=== PATIENT | female | born 1950 | race Asian ===

== ENCOUNTER 2023-04-14 17:10 | Inpatient (IN) | payer OTHER, SELFPAY ==
[2023-04-14 14:05] VITALS: BP 119/62
--- NOTE | 2023-04-14 14:25 | ED.GENMED ---
History of Present Illness
General
Chief Complaint: Failure to Thrive
Time Seen by Provider: 04/14/23 14:24
Travel History
Have you had any contact with someone who has COVID-19?: Unable to Answer
Do you have any symptoms of coronavirus? Fever > 100 degrees, chills, cough, shortness of breath, sore throat, loss of taste or smell, muscle aches, or headache?: Unable to Answer
History of Present Illness
History of Present Illness:
HPI: Pt is a nonhistorian. I called [facility], , at 1435 and spoke to ANA PAULA Clements: 'She had HR 145 w/ labored breathing, no change in mental status (normally awake and oriented x 1) but has been appearing weaker over the past week.
EXAM:
GENERAL: Appears in no distress, but is chronically ill in appearance, poor eye contact and does not participate with examination, she lays in the right lateral decubitus position
HEENT: Dry oral mucosa
CARDIOVASCULAR: Tachycardic rate with irregular rhythm
PULMONARY: No respiratory distress, breathing is nonlabored, equal and clear breath sounds
ABDOMEN: Soft and nontender with no peritoneal signs
NEUROLOGIC: The patient has evidence of dementia, strength is equal in all extremities, she does not participate with examination and does not follow commands, she is nonverbal
EXTREMITIES: Moves all extremities weakly but equally, no tenderness, no edema
PYSCHIATRIC: Currently nonverbal does not participate examination
SKIN: There is a healing wound to the left flank region
ED COURSE:
2:30 PM: I initially evaluated patient
NUMBER AND COMPLEXITY OF PROBLEMS ADDRESSED AT THE ENCOUNTER
� Chronic conditions affecting care: A-fib status post Watchman, high blood pressure, hyperlipidemia, history of alcohol abuse, anxiety/depression
� Acute Exacerbation and/or Progression of Chronic Illness: This is an acute problem
� Differential Diagnosis includes: UTI/sepsis, bacteremia, pneumonia
AMOUNT AND/OR COMPLEXITY OF DATA TO BE REVIEWED AND ANALYZED
� I performed an independent evaluation of and my interpretation is:
EKG: A-fib 110, anterolateral T wave inversion unchanged from 03/31/2023
CT:
X-rays: Chest x-ray shows no clear sign of pneumonia but does show chronic disease
Laboratory Studies: White count slightly high at 11.7, hemoglobin slightly lower at 8.3 in comparison to prior, creatinine is 3.2 which is acutely worsened prior
Other:
� Review of other/old records: I reviewed the discharge summary from January 2023. At that time the patient was felt to have a toxic metabolic encephalopathy related to left frontal subdural hygroma there is also urine culture
that grew Proteus Mirabella
� Clinical information was obtained by an independent historian: ANA PAULA at [facility] as above
� Prescriptions/Medications Considered but not given:
� Further testing considered but not performed:
RISK OF COMPLICATIONS AND/OR MORBIDITY OR MORTALITY OF PATIENT MANAGEMENT
� Social determinants of health affecting care: Comes in from [place]
� Discussion with other providers: Hospitalist for admission at 4:19 PM
� Escalation of care including admission/observation vs risk of discharge considered: The patient's bicarb is very low. She also has evidence of CARMELINA. I am concerned for sepsis as well as severe dehydration (sodium 152). She
was given IV broad-spectrum antibiotics as well as IV fluids aggressively. RN attempted bladder catheterization however given the reported altered anatomy she was unable to perform a straight cath.
Past History
Past History
ED Past Medical History: Arrthythmia (AFib), HTN, Hypercholesterolemia and Other (UTI,)
ED Past Surgical History: Appendectomy, Cardiac (Watchman Procedure), Orthopedic (Knee replacement) and Other (Cataract extraction OU)
Social History
Tobacco: Non-smoker
Alcohol: Daily (Vodka 2 glasses)
Drug: None
Personal:
Living: with family
Family History
Family History: Other (parents bombed in [facility]); Negative Unable to obtain (reviewed and non-contributory)
Phy Exam
Physical Exam
Physical Exam:
See HPI
Course
Orders/Labs/Results
Orders:
Orders
04/14/23 14:04
Electrocardiogram (*1) Urgent
Reason for Study: Fatigue / Weakness
Other Reason for Exam: failure to thrive
EKG- Treatment ONCE
04/14/23 14:21
CMP [Comprehensive Metabolic Panel] Urgent
Complete Blood Count/With Diff Urgent
04/14/23 14:26
CR Chest Portable - 1 View Urgent
Comment:
Reason For Exam: abnormal breathing pattern low grade fever
Reason Study Needs to be Portable: Unable to Transport
04/14/23 14:32
0.9% Sodium Chloride 500 ml [Nss] 500 ml IV BOLUS
04/14/23 14:33
Urinalysis Reflex To Culture Urgent
Date Specimen was Collected: 04/14/23
Time Specimen was Collected: 15:46
04/14/23 14:39
Acetaminophen [Tylenol/Feverall] 650 mg RECTAL NOW STA
04/14/23 Dinner
Regular
At Your Request: Non-Participating
04/14/23 15:18
0.9% Sodium Chloride 1000 ml [Nss] 1,000 ml IV BOLUS
04/14/23 15:41
Blood Culture Q30M
JUSTIN Source: Blood/Venous
Specimen Description:
04/14/23 15:42
COVID-19 Antigen Urgent
Source: Nasal Swab
Lactic Acid Q4H
Comment: CANCEL 2nd LACTIC ACID IF 1st LACTIC ACID IS LESS THAN 2
Blood Culture Q30M
JUSTIN Source: Blood/Venous
Specimen Description:
Influenza A+B Rapid Molecular Urgent
JUSTIN Source: Nasal Swab
Specimen Description:
04/14/23 16:09
Cefepime HCl [Maxipime] 1,000 mg IV NOW STA
04/14/23 16:43
Admit/Transfer Patient As Directed
Co-Sign Provider:
Level of Care: Inpatient admission
Assign to:: Telemetry
Physician / Group: solange
Diagnosis: sepsis presumably uti
Reason for Telemetry: Arrhythmia
Date to Stop Telemetry: 04/17/23
Time to Stop Telemetry: 11:00
Reason for Hospitalization: sepsis presumably uti
Expected length of stay greater than two midnights?: Yes
ELOS- Estimated Length of Stay in days: 2
I certify the patient meets the requirements for IP care: Yes
04/14/23 16:44
Code Status As Directed
Resuscitation Status: Full Code
04/14/23 16:47
Sodium Bicarbonate 50 meq IV NOW STA
04/14/23 16:52
Vancomycin 1 Gram/200 ml [Vancocin] 1 gram in 200 ml IV NOW
04/14/23 17:00
Sterile Water For Inj [Sterile Water For Injection 1000 ml] 1,000 ml Sodium Bicarbonate 150 meq IV 70 mls/hr
04/14/23 18:20
Bisacodyl [Dulcolax] 10 mg RECTAL DAILYPRN PRN
Magnesium Hydroxide [Milk of Magnesia] 30 ml PO [id number] PRN
VANCOMYCIN Pharmacy to Dose [VANCOCIN Pharmacy to Dose] 1 each Pharmacy To Prepare [Call Pharmacy To Prepare] 0 ml IV PER PROTOCOL
04/14/23 18:20
Activity As Directed
Activity Level: As Tolerated
Bladder Scan As Directed
Follow Bladder Retention/Intermittent Cath Algorithm?: Yes
PRN if no void in __ hours: 6
Frequency: Per Retention Algorithm
If Bladder Scan Result >: 400
then:: Straight cath
I/O [Intake/ Output] As Directed
Frequency: q12h
Straight Cath As Directed
Frequency: Per Retention Algorithm
Additional Instructions: straight cath as needed per acute urinary retention algorithm for 24 hrs
Additional Instructions: for bladder scan greater than 400 mL
Vital Signs As Directed
Frequency: Per unit guidelines
DX Deep Vein Thrombosis Video Routine
04/14/23 18:53
Carboxymethylcellulose [Refresh Celluvisc Gel] 1 drops BOTH EYES Q4HPRN PRN
04/14/23 20:00
Heparin 5,000 units SC Q12
04/14/23 22:00
Aspirin Low Dose EC [Aspir Low (Enteric Coated)] 81 mg PO HS
Atorvastatin [Lipitor] 40 mg PO HS
Diltiazem [Cardizem] 30 mg PO Q8H
Latanoprost [Xalatan Ophthalmic Solution] 0 drop BOTH EYES HS
Sildenafil Citrate [Revatio] 30 mg PO TID
Timolol Maleate 0.5% [Timoptic 0.5% Ophthalmic Solution] 0 drop LEFT EYE HS
04/15/23 06:00
Complete Blood Count/With Diff IN AM
Comprehensive Metabolic Panel IN AM
04/15/23 08:00
Duloxetine Delayed Release [Cymbalta Delayed Release] 60 mg PO DAILY
Magnesium l-Lactate [Mag-Tab Sr] 84 mg PO DAILY
Pantoprazole [Protonix] 40 mg PO DAILY
Thiamine HCl [Vitamin B1] 100 mg PO DAILY
04/17/23 11:00
DC Protocol for Telemetry ONCE
Abnormal Lab Results
04/14/23 04/14/23
14:21 15:42
WBC 11.7 H 10^3/uL
(4.8-10.8)
RBC 2.74 L 10^6/uL
(4.20-5.40)
Hgb 8.3 L g/dL
(12.0-16.0)
Hct 25.1 L %
(37.0-47.0)
RDW 20.3 H %
(11.5-14.5)
Plt Count 113 L 10^3/uL
(130-400)
Absolute Neuts (auto) 6.8 H 10^3/uL
(1.4-6.5)
Absolute Lymphs (auto) 4.0 H 10^3/uL
(1.2-3.4)
Absolute Monos (auto) 0.7 H 10^3/uL
(0.1-0.6)
Sodium 152 H mmol/L
(135-145)
Chloride 132 H mmol/L
(98-107)
Carbon Dioxide 8 L* mmol/L
(22-30)
BUN 41 H mg/dl
(7-17)
Creatinine 3.2 H mg/dL
(0.6-1.0)
Lactic Acid 2.2 H mmol/L
(0.7-2.0)
Total Bilirubin 2.9 H mg/dl
(0.2-1.3)
AST 37 H U/L
(14-36)
Total Protein 6.2 L g/dl
(6.3-8.2)
Albumin 2.5 L g/dl
(3.5-5.0)
04/14/23 14:21
04/14/23 14:21
Vital Signs
Initial and Last Documented VS:
Initial Vital Signs
Temp Pulse Resp BP Pulse Ox
100.3 F 129 16 119/62 100
04/14/23 14:05 04/14/23 14:05 04/14/23 14:05 04/14/23 14:05 04/14/23 14:05
Last Documented Vital Signs
Temp Pulse Resp BP Pulse Ox
100.3 F 79 21 95/68 100
04/14/23 14:05 04/14/23 17:30 04/14/23 17:30 04/14/23 17:00 04/14/23 17:34
*Critical Care Note
Total Time (30-74mins, 75-104mins- exclusive of procedures): Not Applicable
ED Attending Note
-
Portions of this chart may have been created with voice recognition software.� Occasional wrong word or��sound alike� substitutions may have occurred due to the inherent limitations of voice recognition software.
Discharge Plan
Interventions
Interventions:
*Risk Screen - Suicide Last Done: 04/14/23 14:05
*General Assessment Last Done: 04/14/23 14:05
*Neglect/Abuse Screening Last Done: 04/14/23 14:05
ED- Fall Risk Assessment Last Done: 04/14/23 14:05
*ED COVID-19 Vaccine History Last Done: 04/14/23 14:05
*Nursing Disposition Last Done: 04/14/23 18:19
[2023-04-14 14:34] LABS: % Basophils 0.4 % (0-2); % Eosinophils 1.4 % (0-6); % Immature Granulocytes 0.3 % (0-0.5); % Monocytes 5.7 % (1.7-9.3); % Neutrophils 58.2 % (42.2-75.2); Absolute Basophils 0.1 10^3/uL (0-0.2); Absolute Eosinophils 0.2 10^3/uL (0-0.7); Absolute Monocytes 0.7 10^3/uL (0.1-0.6); Absolute Neutrophils 6.8 10^3/uL (1.4-6.5); Hematocrit 25.1 % (37.0-47.0); Hemoglobin 8.3 g/dL (12.0-16.0); Mean Corp Hgb Conc. 33.1 g/dL (33.0-37.0); Mean Corpuscular Hgb 30.3 pg (27.0-31.0); Mean Corpuscular Volume 91.6 fL (81.0-99.0); Mean Platelet Volume 10.1 fL (7.4-10.4); Nucleated Red Blood Cells % 0 %; Platelet Count 113 10^3/uL (130-400); Red Blood Cell Count 2.74 10^6/uL (4.20-5.40); Red Cell Dist. Width 20.3 % (11.5-14.5); White Blood Cell Count 11.7 10^3/uL (4.8-10.8)
[2023-04-14 15:00] VITALS: BP 91/71
[2023-04-14 15:14] LABS: ALT (SGPT) 16 U/L (0-35); AST (SGOT) 37 U/L (14-36); Albumin 2.5 g/dl (3.5-5.0); Alkaline Phosphatase 120 U/L (38-126); Blood Urea Nitrogen 41 mg/dl (7-17); Calcium 8.8 mg/dl (8.4-10.2); Carbon Dioxide 8 mmol/L (22-30); Chloride 132 mmol/L (98-107); Glucose 77 mg/dl (70-99); Potassium 4.2 mmol/L (3.5-5.1); Sodium 152 mmol/L (135-145); Total Bilirubin 2.9 mg/dl (0.2-1.3); Total Protein 6.2 g/dl (6.3-8.2); eGFR 14.64
[2023-04-14 16:00] VITALS: BP 101/79
[2023-04-14 16:06] LABS: Lactic Acid 2.2 mmol/L (0.7-2.0)
[2023-04-14 16:19] LABS: COVID-19 Antigen Negative (Negative)
--- NOTE | 2023-04-14 16:51 | HPS.HSE ---
Addendum entered and electronically signed by Aliya Hopson MD 04/14/23 16:56:
Held remeron and oxybutynin.
Original Note:
Family Physician
-
Family Physician: Jerry Johnson
Chief Complaint
-
altered mental status
History of Present Illness
72-year-old female with past medical history of Proteus mirabilis UTI, intracranial hygroma, anemia of chronic disease, chronic thrombocytopenia, permanent atrial fibrillation status post Watchman, hypertension, chronic cyanosis of fingertips,
hyperlipidemia, MRSA infection, depression, scleroderma, GERD, glaucoma, presenting from [facility] with decreased oral intake for the past few days. History is obtained from patient's at bedside. She was noticed to be tachycardic and
confused today. No cough noted. No vomiting or diarrhea or urinary symptoms known as per .
Medical History
Past Medical History
Past Medical History: Reports Other ( Proteus mirabilis UTI, intracranial hygroma, anemia of chronic disease, chronic thrombocytopenia, permanent atrial fibrillation status post Watchman, hypertension, chronic cyanosis of fingertips, hyperlipidemia,
MRSA infection, depression, scleroderma, GERD, glaucoma)
Past Surgical History: Reports None
Social History
Tobacco: Non-smoker
Alcohol: None
Drug: None
Family History
Family History: Not pertinent
Allergies / Home Medications
Allergies reflects when Allergies were last updated in [facility].
Home Medications with original date entered in [facility]
Allergy/Medication List:
Allergies
Allergy/AdvReac Type Severity Reaction Status Date / Time
hydromorphone [From Dilaudid] Allergy convusuion Verified 02/11/23 17:38
oxycodone Allergy confusion Verified 02/11/23 17:38
Penicillins Allergy Rash, Verified 02/10/23 11:11
hives;
tolerates
cephalosporins
Home Medications
aspirin 81 mg tablet,delayed release 81 mg PO HS Blood clot prevention/tx 09/26/18
latanoprost 0.005 % eye drops 1 drp BOTH EYES HS Eye condition 09/26/18
atorvastatin 40 mg tablet 40 mg PO HS High cholesterol 05/31/20
pantoprazole 40 mg tablet,delayed release 40 mg PO DAILY 06/06/20
timolol maleate 0.5 % eye drops 1 drp LEFT EYE HS Eye condition 10/23/20
duloxetine 60 mg capsule,delayed release 60 mg PO DAILY Pain 06/01/22
sildenafil (pulm.hypertension) 20 mg tablet 30 mg PO TID Lung/breathing issues 06/01/22
potassium chloride 10 mEq tablet,extended release 10 meq PO DAILY Electrolyte Repletion 09/01/22
thiamine HCl (vitamin B1) 100 mg tablet (Vitamin B-1) 100 mg PO DAILY Supplement 02/10/23
acetaminophen 325 mg tablet 650 mg PO Q4HPRN PRN mild pain/fever 03/31/23
bisacodyl 10 mg rectal suppository (Dulcolax (bisacodyl)) 10 mg MN DAILY PRN constipation 03/31/23
carboxymethylcellulose sodium 1 % eye drops 1 drp BOTH EYES Q4H PRN dry eyes 03/31/23
diltiazem HCl 30 mg tablet 30 mg PO Q8H 03/31/23
magnesium oxide 400 mg PO DAILY 03/31/23
mirtazapine 7.5 mg tablet 7.5 mg PO HS 03/31/23
magnesium hydroxide 400 mg/5 mL oral suspension (Milk of Magnesia) 2,400 mg PO [id number] PRN if no bm by 3rd day 04/14/23
oxybutynin chloride 10 mg tablet,extended release 24 hr 10 mg PO DAILY 04/14/23
Review of Systems
-
History Source: Patient and Family
A 12 point ROS was completed and negative except as noted: No
Physical Exam
Vital Signs
Vital Signs
Temp Pulse Resp BP Pulse Ox
100.3 F 129 16 119/62 100
04/14/23 14:05 04/14/23 14:05 04/14/23 14:05 04/14/23 14:05 04/14/23 14:05
Physical Exam
General: Well Developed, Well Nourished and No Apparent Distress
HEENT: NormoCephalic, Moist mucous membranes and Atraumatic
Respiratory: Clear
Cardiac: S1/S2 and Regular Rhythm; No Murmur or Rub
GI: Soft, Non Tender, Non Distended and Normal Bowel Sounds; No Organomegaly
Rectal: Deferred by Provider
Musculoskeletal: No Clubbing, No Cyanosis and No Edema
Skin: No Rash
Neuro: Nonfocal/grossly intact
Laboratory Results
-
04/14/23 14:21
04/14/23 14:21
Laboratory Results
Lactic Acid 2.2 mmol/L (0.7-2.0) H 04/14/23 15:42
Total Bilirubin 2.9 mg/dl (0.2-1.3) H 04/14/23 14:21
AST 37 U/L (14-36) H 04/14/23 14:21
ALT 16 U/L (0-35) 04/14/23 14:21
Alkaline Phosphatase 120 U/L (38-126) 04/14/23 14:21
Data Reviewed
-
Lab Data: Labs Reviewed by me
Old Records: Reviewed
Impression/Plan
-
IMPRESSION:
PLAN:
# Sepsis (fever, tachycardia, leukocytosis,) possibly secondary to UTI/metabolic encephalopathy
# History of Proteus mirabilis UTI
-Nurse attempted to straight cath but could not locate urethra
-COVID and influenza negative
-Chest x-ray shows mild cardiomegaly without pulm edema
-Urinalysis pending
-Check urine culture/blood cultures
-IV fluids
-vancomycin, Cefepime
-Regular diet and oral medications as stated below when mental status improved
# Acute kidney injury
# Metabolic acidosis secondary to sepsis/lactic acidosis
-Lactate of 2.2
-Bicarb drip
-Monitor I's and O's
# Hypernatremia
-Isotonic bicarb drip
# Acute on chronic anemia
-Baseline hemoglobin around 9-10, currently 8.3
-Continue to monitor
Intracranial hygroma
Multiple chronic multilevel vertebral body endplate fractures
Chronic back pain status post spinal stimulator which is detached
-Plan for repair by SEPA at some point
Mild to moderate elevation of right hemidiaphragm
Permanent atrial fibrillation status post Watchman
-Continue aspirin
-Continue diltiazem
Scleroderma
Pulmonary hypertension
-Continue sildenafil
Essential hypertension
Chronic thrombocytopenia
Chronic cyanosis of fingertips
Hyperlipidemia
-Continue statin
History of MRSA infection
Depression
-Continue duloxetine, mirtazapine
GERD
-Continue Protonix
Glaucoma
Full code
DVT prophylaxis�heparin
Regular diet
[2023-04-14 17:00] VITALS: BP 95/68
[2023-04-14] MEDS: NSS 500 IV (17:07)
[2023-04-14] MEDS: SODIUM BICARBONATE 50 MEQ IV (17:08)
[2023-04-14] MEDS: MAXIPIME 1000 MG IV (17:08)
[2023-04-14] MEDS: NSS 1000 IV (17:09)
[2023-04-14] MEDS: VANCOCIN 200 IV (17:11)
[2023-04-14] MEDS: TYLENOL/FEVERALL 650 MG RECTAL (17:13)
[2023-04-14] MEDS: SODIUM BICARBONATE 1150 MEQ IV (17:26)
--- NOTE | 2023-04-14 19:13 | PHA.VAN.IN ---
Assessment
- Assessment
Renal Function: Appears elevated from baseline (02/14/23 BASELINE SCR: 1.0)
Concomitant Antimicrobials: CEFEPIME
- Previous Dosing Experience
Previous Regimen: 500MG IV Q24H
Date of Regimen: 06/07/22
Provided Trough of: 16
Provided AUC of: 451 PREDICTED
Patient's SCR is: Elevated compared to previous dosing experience (06/07/22 SCR = 0.9)
Patient's weight is: Decreased compared to previous dosing experience (06/07/22 WT = 47.7KG)
Plan
- Plan
Initial / Loading Dose: 1GM
Maintenance Regimen: DOSING BY RANDOM LEVELS
Monitoring: RANDOM VANCOMYCIN LEVEL 04/15/23 AM
Pharmacokinetics Vancomycin I
- -
Patient Age: 72
Patient Sex: Female
Vancomycin Day #: 1
Indication: Genito-Urinary Tract (sepsis)
Requesting Provider: TESFAYE
Pertinent Antimicrobial Allergies:
Allergies
Penicillins Allergy (Verified 02/10/23 11:11)
Rash, hives; tolerates cephalosporins
Received Ceftriaxone (September 2020, May 2020), Cefepime (September 2018), Cefuroxime (September 2020), Cefdinir (May 2020)
Height / Weight:
Height 4 ft 11 in
Actual Weight 41 kg
- Vital Signs / Lab Results
Temp Pulse Resp BP Pulse Ox
100.3 F 79 21 95/68 100
04/14/23 14:05 04/14/23 17:30 04/14/23 17:30 04/14/23 17:00 04/14/23 17:34
Lab Results - Hematology
04/14/23
14:21
WBC 11.7 H
Lab Results - Chemistry
04/14/23
14:21
BUN 41 H
Creatinine 3.2 H
Albumin 2.5 L
04/14/23
15:42
Lactic Acid 2.2 H
Microbiology Results
04/14/23 15:42 Influenza Types A & B (RADHAMES) - Final
Nasal Swab Negative for Influenza A & B, NAAT
Negative results must be combined with clinical observations
and patient history.
Nucleic Acid Amplification test (NAAT)performed on the
[employer] platform.
[2023-04-14] MEDS: HYLENEX 30 UNITS SC ×5 (19:49→19:50)
[2023-04-14] MEDS: HEPARIN 5000 UNITS SC (22:16)
[2023-04-14] MEDS: LIPITOR 40 MG PO (22:16)
[2023-04-14] MEDS: ASPIR LOW (ENTERIC COATED) 81 MG PO (22:16)
[2023-04-14] MEDS: CARDIZEM 30 MG PO (22:16)
[2023-04-14] MEDS: REVATIO 30 MG PO (22:17)
[2023-04-14] MEDS: XALATAN OPHTHALMIC SOLUTION 1 DROP BOTH EYES (22:17)
[2023-04-14] MEDS: TIMOPTIC 0.5% OPHTHALMIC SOLUTION 1 DROP LEFT EYE (22:17)
[2023-04-15] VITALS (14 sets, daily range): BP systolic 84–147; BP diastolic 51–99; BMI 18.6; BMI 17.8
[2023-04-15 00:09] LABS: Lactic Acid 3.7 mmol/L (0.7-2.0)
--- NOTE | 2023-04-15 02:50 | PTCARENOTE ---
Pt arrived to floor. Pt transferred to bed. Pt non verbal, restless with labored breathing. Pt VSS. Pt call gonzales within reach, unable to orient to room d/t cognitive difficulty.
--- NOTE | 2023-04-15 03:00 | PTCARENOTE ---
Pt with labored breathing, respiratory asked to come assess pt as well as [employer]. Pt placed on O2 for comfort and seemed to have calmed down with some restlessness and labor in breathing. Pt difficult to obtain Sp02 on. Sp02 94% on 3L. Pt in no signs of
acute distress.
--- NOTE | 2023-04-15 03:14 | RESPNOTE ---
Called by RN to evaluate pt for them. HR 101, RR 24, BS clear bilat. 95% on 2 lpm nc. No tx needed at this time, however let them know to call if pt seems in further distress
[2023-04-15 03:58] LABS: % Basophils 0.4 % (0-2); % Immature Granulocytes 0.6 % (0-0.5); % Lymphocytes 33.6 % (20.5-51.1); % Monocytes 7.2 % (1.7-9.3); % Neutrophils 56.2 % (42.2-75.2); Absolute Eosinophils 0.2 10^3/uL (0-0.7); Absolute Immature Granulocytes 0.1 10^3/uL (0-0.05); Absolute Lymphocytes 3.6 10^3/uL (1.2-3.4); Absolute Monocytes 0.8 10^3/uL (0.1-0.6); Absolute Neutrophils 6.1 10^3/uL (1.4-6.5); Mean Corp Hgb Conc. 33.7 g/dL (33.0-37.0); Mean Corpuscular Hgb 30.8 pg (27.0-31.0); Mean Corpuscular Volume 91.4 fL (81.0-99.0); Nucleated Red Blood Cells % 0 %; Red Blood Cell Count 2.21 10^6/uL (4.20-5.40); Red Cell Dist. Width 20.1 % (11.5-14.5); White Blood Cell Count 10.8 10^3/uL (4.8-10.8)
[2023-04-15 04:07] LABS: Hematocrit 20.2 % (37.0-47.0); Hemoglobin 6.8 g/dL (12.0-16.0)
[2023-04-15 04:35] LABS: Vancomycin Random 14.6 ug/ml
[2023-04-15 04:42] LABS: Blood Urea Nitrogen 41 mg/dl (7-17); Calcium 8.2 mg/dl (8.4-10.2); Carbon Dioxide 11 mmol/L (22-30); Chloride 128 mmol/L (98-107); Estimated Creatinine Clearance 10 ml/min; Glucose 57 mg/dl (70-99); Potassium 3.7 mmol/L (3.5-5.1); Sodium 155 mmol/L (135-145); eGFR 14.64
[2023-04-15 04:55] LABS: Mean Platelet Volume 10.1 fL (7.4-10.4); Platelet Count 84 10^3/uL (130-400)
--- NOTE | 2023-04-15 05:11 | W.PN.UPDATE ---
Addendum entered and electronically signed by AMINA Donnelly 04/15/23 05:53:
blood consent obtained from Hakeem Benton. He will be in to visit later today
Original Note:
Update Note
Progress Note Update
abnormal labs this am:
HH 6.9 ( was 8.3)--> baseline 9-10. No signs of bleeding. Possible dilution from sepsis boluses received. Will repeat HH and also get type screen. If remains low will obtain blood consent from as pt is unable to sign for herself at this
time. hh q6
Co2 11 (up from 8)--> 50meq iv now bicarb
Glucose 57--> will change previous ivf sw with 150meg bicarb to D5w with 150meq for hypoglycemia and hypernatremia repeat bmp at 1000
[2023-04-15] MEDS: SODIUM BICARBONATE 50 MEQ IV (05:19)
[2023-04-15 05:20] LABS: Hematocrit 20.1 % (37.0-47.0); Hemoglobin 6.8 g/dL (12.0-16.0)
[2023-04-15] MEDS: SODIUM BICARBONATE 1150 MEQ IV ×2 (05:43→10:26)
[2023-04-15] MEDS: CARDIZEM PO (05:59)
--- NOTE | 2023-04-15 06:01 | PTCARENOTE ---
Pt Afib HR sustaining 110's-20s. Pt due for Cardizem PO 0600, pt unable to receive med due to lethargy; inability to open mouth to take sips or anything else. MUSHTAQ Sosa made aware, no further orders.
--- NOTE | 2023-04-15 07:30 | PTCARENOTE ---
0710 Started one unit of PRBC as ordered, check with second RN as per protocol. VS stable, afebrile. Stayed with pt first 15 minutes, pt tolerated transfusion, continue to monitor pt closely.
[2023-04-15 09:13] LABS: Glucose - Point of Care 44 mg/dl (70-99)
[2023-04-15] MEDS: DEXTROSE 50% SYRINGE 12.5 GRAMS IV ×3 (09:18→15:56)
[2023-04-15 09:40] LABS: Glucose - Point of Care 62 mg/dl (70-99)
[2023-04-15] MEDS: REVATIO PO ×3 (09:49→21:39)
[2023-04-15] MEDS: HEPARIN 5000 UNITS SC ×2 (09:56→21:19)
[2023-04-15] MEDS: LOPRESSOR 5 MG IV ×2 (09:56→16:08)
--- NOTE | 2023-04-15 09:58 | W.PN.HOSP.TC ---
Addendum entered and electronically signed by Donte Houston MD 04/15/23 18:05:
Addendum
# s/p Harding showed pus in urine
# Still low glucose, will increase rate of D10, give D12.5gm of dextrose
# Unable to get blood for testing, will do pic line
# Still toxic metabolic encephalopathy, change to NPO
#Since we are unable to get stat BMP at present time, she has low K this morning and getting IV dextrose, will assume low K persists, will give K rider empirically for one time dose until we get BMP result
# d/w
Original Note:
Today's Communication/Plan
-
.
Assessment / Plan
Assessment / Plan
Physical Exam
General: ill looking
HEENT: Normocephalic, dry mucous membranes and Atraumatic
Respiratory: limited
Cardiac: S1/S2 tachycardia
GI: Soft, Non Tender, Non Distended
Rectal: no bleeding
Musculoskeletal: + contractures, no edema in legs
Neuro: confused, did not follow commands
Psych: mild agitation
#Severe Sepsis (fever, tachycardia, lactic acidosis, leukocytosis,) possibly secondary to UTI/metabolic encephalopathy
# History of Proteus mirabilis UTI
Admit to higher level care/ IMU
Hold oral medications due to risk of aspiration
c/w empiric IV Anx
f/w cultures
Harding catheter placement due to critical care illness and renal failure
-COVID and influenza negative
-Chest x-ray shows mild cardiomegaly without pulm edema
- c/w IVF , modify due to low glucose
# Acute respiratory distress
c/w O2
No hypoxia documented
#Permanent atrial fibrillation status post Watchman
Uncontrolled, heart rate around 110
Patient is unable to take oral medication. Was started on IV metoprolol
Continue radiation monitor
# Acute kidney injury
# Metabolic acidosis secondary to sepsis/lactic acidosis
-Lactate of 2.2
-Bicarb drip
-Monitor I's and O's
-Harding catheter
-Renal ultrasound
-Appreciate nephrology input
# Hypoglycemia,
Change dextrose to D10 and increase infusion rate
# Hypernatremia
Continue with dextrose infusion
# Acute on anemia of chronic disease
Will do rectal exam once stabilized
Status post 1 unit of blood transfusion
Recheck hemoglobin after transfusion
-Baseline hemoglobin around 9-10
-No history of rectal bleed
# valvular heart disease
Mild to moderate mitral regurgitation.
�Mild aortic regurgitation.
�Moderate to severe tricuspid regurgitation.
#Intracranial hygroma
No indication for intervention per neurosurgery evaluation in recent past
Multiple chronic multilevel vertebral body endplate fractures
#Chronic back pain status post spinal stimulator which is detached
#Mild to moderate elevation of right hemidiaphragm
# Systemic scleroderma with clubbing/cyanosis of finger tips/ Raynaud''s disease without gangrene�
Change Protonix to IV
#Pulmonary hypertension
Continue with oxygen supplement
-Continue sildenafil when able to take oral
#Essential hypertension/ Chronic thrombocytopenia
#Hyperlipidemia
-Continue statin
#History of MRSA infection
#Depression
- hold duloxetine, mirtazapine while encephalopathic
# Glaucoma
c/w eye drops
Total critical time spent to see the patient on the floor, examine the patient, review data and lab results, discuss treatment plan with patient and nursing staff around 75 minutes
Anticipated Discharge: > 48 hours
Subjective/Interval History
-
Date of Service: April 15, 2023
Objective Data
-
Labs:
Laboratory Results
04/15/23 04/15/23 04/15/23
03:36 04:56 06:00
WBC 10.8 Cancelled
Hgb 6.8 L* 6.8 L* Cancelled
Hct 20.2 L* 20.1 L* Cancelled
Plt Count 84 L D Cancelled
Sodium 155 H Cancelled
Potassium 3.7 Cancelled
Chloride 128 H Cancelled
Carbon Dioxide 11 L* Cancelled
BUN 41 H Cancelled
Creatinine 3.2 H Cancelled
Glucose 57 L Cancelled
Calcium 8.2 L Cancelled
Total Bilirubin Cancelled
AST Cancelled
ALT Cancelled
Alkaline Phosphatase Cancelled
04/15/23 04/15/23 04/15/23
10:00 13:00 16:00
WBC
Hgb Cancelled Pending Cancelled
Hct Cancelled Cancelled
Plt Count
Sodium Pending
Potassium Pending
Chloride Pending
Carbon Dioxide Pending
BUN Pending
Creatinine Pending
Glucose Pending
Calcium Pending
Total Bilirubin
AST
ALT
Alkaline Phosphatase
Vital Signs:
Vital Signs
Temp Pulse Resp BP Pulse Ox
97.8 F 110 18 113/69 96
04/15/23 07:20 04/15/23 07:20 04/15/23 07:20 04/15/23 07:20 04/15/23 02:50
I&O
04/14/23 04/15/23 04/16/23
06:59 06:59 06:59
Intake Total 0 / 0
Balance 0 / 0
[2023-04-15] MEDS: NSS (PRESERVATIVE FREE) 10 ML IV (10:10)
[2023-04-15] MEDS: PROTONIX IV 40 MG IV (10:10)
[2023-04-15 10:12] LABS: Glucose - Point of Care 113 mg/dl (70-99)
--- NOTE | 2023-04-15 10:34 | PHA.VAN.FU ---
Vancomycin Assessment / Plan
- Assessment
Renal Function: Stable
WBC's are: WNL
In the past 24 hrs, patient has been: Afebrile
Concomitant Antimicrobials: cefepime
- Assessment - Therapeutic Drug Monitoring
Random Level: 14.6 - drawn ~10.5H after initial dose of 1000mg
- Dosing Plan
Dosing by Level: Re-dose today (Vanc 500mg)
- Monitoring Plan
Random Level: 04/16 0600
- Follow Up
Pharmacy will continue to follow.
Vancomycin Follow UP
- -
Patient Age: 72
Patient Sex: Female
Vancomycin Day #: 2
Indication: Genito-Urinary Tract
Requesting Provider: Dr. Hopson
Pertinent Antimicrobial Allergies:
Penicillins - Rash, hives; tolerates cephalosporins
Received Ceftriaxone (September 2020, May 2020), Cefepime (September 2018), Cefuroxime (September 2020), Cefdinir (May 2020)
Height / Weight:
Height 4 ft 11 in
Actual Weight 41.759 kg
IBW in k.5
Pertinent Past Medical History: BMI ~18.6
- Vital Signs / Lab Results
Temp Pulse Resp BP Pulse Ox
98.0 F 98 20 104/51 96
04/15/23 10:22 04/15/23 10:22 04/15/23 10:22 04/15/23 10:22 04/15/23 02:50
Lab Results - Hematology
04/14/23 04/15/23 04/15/23
14:21 03:36 06:00
WBC 11.7 H 10.8 Cancelled
Lab Results - Chemistry
04/14/23 04/15/23 04/15/23
14:21 03:36 06:00
BUN 41 H 41 H Cancelled
Creatinine 3.2 H 3.2 H Cancelled
Estimated Creat Clear 10 Cancelled
Albumin 2.5 L Cancelled
04/15/23
10:00
BUN Cancelled
Creatinine Cancelled
Estimated Creat Clear Cancelled
Albumin
04/14/23 04/14/23 04/14/23
15:42 18:48 23:29
Lactic Acid 2.2 H Cancelled 3.7 H
04/15/23
10:00
Lactic Acid Cancelled
Microbiology Results
04/14/23 15:42 Influenza Types A & B (RADHAMES) - Final
Nasal Swab Negative for Influenza A & B, NAAT
Negative results must be combined with clinical observations
and patient history.
Nucleic Acid Amplification test (NAAT)performed on the
[employer] platform.
Therapeutic Drug Monitoring
Random Vancomycin 14.6 ug/ml 04/15/23 03:36
[2023-04-15 11:52] LABS: Urine Albumin Trace (Neg - Trace); Urine Bilirubin Negative (Negative); Urine Character Very Cloudy (Clear); Urine Color Yellow; Urine Glucose Negative (Negative); Urine Ketone Negative (Negative); Urine Leukocyte 2+ (Negative); Urine Nitrite Negative (Negative); Urine Occult Blood 3+ (Negative); Urine Urobilinogen Negative (Neg - 1+); Urine pH 6.5 (5.0-9.0)
[2023-04-15] MEDS: VANCOCIN HCL 500 MG 100 IV (12:01)
[2023-04-15] MEDS: FLUSH (NSS) 2 FLUSH IV (12:07)
[2023-04-15 12:26] LABS: Urine Bacteria Moderate (Negative); Urine White Cell >100 /HPF (0-5)
[2023-04-15] MEDS: LOPRESSOR IV ×2 (12:48→22:18)
--- NOTE | 2023-04-15 12:53 | CON.MD ---
Consultation - Medical
-
IMP:
Severe� Sepsis (fever, tachycardia, lactic acidosis,� leukocytosis,) possibly secondary to UTI/metabolic encephalopathy
History of Proteus mirabilis UTI
Acute respiratory distress
Permanent atrial fibrillation status post Watchman
Acute kidney injury with CKD baseline cr 1.1
mild gap and Non Gap Metabolic acidosis
Hypoglycemia
Hypernatremia
Acute on� anemia of chronic disease
valvular heart disease-Mild to moderate mitral regurgitation.Mild aortic regurgitation.Moderate to severe tricuspid regurgitation.
Intracranial hygroma
Multiple chronic multilevel vertebral body endplate fractures
Chronic back pain status post spinal stimulator which is detached
Mild to moderate elevation of right hemidiaphragm
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
Pulmonary hypertension
Essential hypertension
Chronic thrombocytopenia
Hyperlipidemia
History of MRSA infection
Depression
Glaucoma
Plan:
A/w with AMS from [facility] found sepsis possible source UTI
CARMELINA likely prerenal vs ATN, UA consistent with UTI, pending cx
check renal US as ordered
keep casarez, has 350cc UOP
hypernatremia likely from poor intake, FW deficit is 2.2lit
improving met acidosis with bicarb IVF, prn bicarb iV pushes
as met acidosis improves change to hypotonic fluid with less bicarb
BP are stable with out major hypotension
monitor hypoglycemia with D10
abx per primary, pending cx
anemia-check fe panel, s/p PRBC today
avoid nephrotoxins
d/w nursing
[id number]
[2023-04-15 13:02] LABS: Glucose - Point of Care 89 mg/dl (70-99)
--- NOTE | 2023-04-15 13:06 | PTCARENOTE ---
10:10 Pt's blood sugar at 9am was 44. Pt is nonverbal, drowsy and lethargic, followed hypoglycemic intervention as per protocol.
Pt did receive D50 1/2 amp IV as ordered, after 15 minutes pt blod sugar 62, repeated D50 1/2 amp IV as ordered.
10:10am recheck blood sugar result 113, DR Houston notified. DR. Houston ordered pt to be transferred to IMU, awaiting bed available.
[2023-04-15 13:15] LABS: Hemoglobin 11.2 g/dL (12.0-16.0)
--- NOTE | 2023-04-15 15:22 | CM ---
Patient admitted to from [facility]. Patient was admitted to [facility] on 03/31 from [facility]. Patient has also been at previously (04/13) and had been transferred to [facility] at that time. Patient currently for possible
transition to IMU per chart review. Patient born and grew up in [place], immigrated to [place] in [place], resides with in an apartment, with no steps, has supportive daughter and 2 stepchildren per prior chart notes. Patient also has been to
[facility] in the past. Patient PCP is Dr. Koch and she used the Pharmacy [facility] in [place] in the past when home. Per Admissions at [facility], patient has paid for a private pay bed hold.
Plan; return to [facility], will need auth to return
[2023-04-15 15:49] LABS: Glucose - Point of Care 55 mg/dl (70-99)
[2023-04-15 15:49] LABS: Blood Urea Nitrogen 40 mg/dl (7-17); Calcium 7.6 mg/dl (8.4-10.2); Carbon Dioxide 18 mmol/L (22-30); Chloride 127 mmol/L (98-107); Estimated Creatinine Clearance 10 ml/min; Glucose 129 mg/dl (70-99); Potassium 3.2 mmol/L (3.5-5.1); Sodium 154 mmol/L (135-145); eGFR 14.64
--- NOTE | 2023-04-15 16:03 | WOUNDNOTE ---
RIGHT MEDIAL FOOT
[2023-04-15 16:21] LABS: Glucose - Point of Care 90 mg/dl (70-99)
--- NOTE | 2023-04-15 16:26 | WOUNDNOTE ---
[facility] RN NOTE: Spoke to patient's RN Senait, reviewed chart, met with patient. Patient from [place] now with sepsis, contracted legs, and BMI of 18. Plan is for patient to be transferred to IMU, awaiting bed. Right is non-responsive and non-verbal. She has a
stage 3 PI of right ankle and unstageable PI of right medial foot. This wound likely caused from pressure from leg/knee. Sacrum intact. Stage 1 heels. Abrasion on mid back. All foam dressings maintained. Patient given continence care for large BM
from this promotion writer and RN's Deonna, Maryanne and Say. Harding intact. Soft 02 tubing used. Patient off loaded on right semi-side lying position. Plan is for 1/4 strength and medihoney for right foot and ankle wounds. Orders confirmed with hospitalist.
Orders, discharge and careplan updated. ANA PAULA Sapp given update. Will continue to follow as needed.
[2023-04-15 18:53] LABS: Blood Urea Nitrogen 28 mg/dl (7-17); Calcium 3.5 mg/dl (8.4-10.2); Chloride 68 mmol/L (98-107); Estimated Creatinine Clearance 22 ml/min; Potassium 1.6 mmol/L (3.5-5.1); Sodium 134 mmol/L (135-145); eGFR 36.34
[2023-04-15] MEDS: KCL 270 MEQ IV (19:01)
[2023-04-15] MEDS: MAXIPIME 5.65000000000000036 MG IV (19:02)
[2023-04-15 19:09] LABS: Glucose - Point of Care 82 mg/dl (70-99)
[2023-04-15 19:10] LABS: Glucose > 2500 mg/dl (70-99)
--- NOTE | 2023-04-15 19:15 | PTCARENOTE ---
1900 Lab called regarding lab results K level 1.6, blood glucose over 2500, calcium level 3.5. Rechecked accucheck blood glucose result 82.
Notified Night SAFETY MANAGER Mark and ordered to repeat BMP level at 1930. K rider IV started as ordered,see MAY.
1914 Pt transferred to IMU room 3346 via bed, report given to plant operator/shift supervisor nurse.
[2023-04-15 19:16] LABS: Carbon Dioxide 67 mmol/L (22-30)
--- NOTE | 2023-04-15 20:18 | PTCARENOTE ---
Received patient as a transfer from [facility] on 5 liters NC, responsive to voice, rectal temp 101.2. Vascular access to bedside to place picc and obtain labs.
[2023-04-15] MEDS: SODIUM BICARBONATE 1075 MEQ IV (20:54)
[2023-04-15] MEDS: TYLENOL/FEVERALL 650 MG RECTAL (21:19)
[2023-04-15] MEDS: REFRESH CELLUVISC GEL 1 DROPS BOTH EYES (21:20)
[2023-04-15] MEDS: DAKIN'S SOLUTION 0.125% 1/4 STRENGTH 473 ML TOPICAL (21:20)
--- NOTE | 2023-04-15 21:20 | PTCARENOTE ---
Vascular access unable to obtain picc. Patient to go to IR tomorrow for line.
[2023-04-15 21:40] LABS: Blood Urea Nitrogen 40 mg/dl (7-17); Calcium 7.4 mg/dl (8.4-10.2); Carbon Dioxide 17 mmol/L (22-30); Chloride 126 mmol/L (98-107); Estimated Creatinine Clearance 10 ml/min; Glucose 135 mg/dl (70-99); Lactic Acid 5.7 mmol/L (0.7-2.0); Potassium 4.3 mmol/L (3.5-5.1); Sodium 152 mmol/L (135-145); eGFR 15.82
--- NOTE | 2023-04-15 21:55 | VATNOTE ---
obtained picc order earlier this dash for lab draws. Attempted picc insertion bilaterally min. 4 x each arm. Able to cannulate vessel however unable to thread wires in any of the vessels selected. Spent approx. 1 hr attempting picc. PCN made aware
that pt. will need IR consult for am. Leg IV placed with labs obtained by other VAT RN.
--- NOTE | 2023-04-15 22:10 | RESPNOTE ---
ABG attempted x2. MUTUEL CASHIER and RN made aware
--- NOTE | 2023-04-15 23:04 | W.PN.UPDATE ---
Update Note
Progress Note Update
RN notified [employer] S[employer] PROFESSIONAL of patient's condition as noted abnormal labs, BMP repeated, and lab results noted. Lactic acid has increased and is on sodium Bicarb at 150cc/hr'
RN notified [employer] PROFESSIONAL of patient with labored breathing. Patient seen and evaluated. Lungs diminished, RR 24-26, irregular breathing O2 2L 99% lethargic, not following commands (baseline), BP noted to be in 80's/50's, unable to give Morphine at this time.
RT unable to access for ABG due to poor veins.
Current condition and code status addressed and explained to Spouse, Spouse stated he did not understand what this [employer]ESSION[employer] was explaining and wanted to speak to a Doctor. Dr. Brooks made aware as he admitted the patient and current condition and code
status was explained to the Spouse by Dr. Brooks, Patient remains Full code.
At 0030 BP noted to be in 120's/90, 1mg Morphine given at that time.
Labs addressed to keypunch operators supervisor refrigeration engine operator, no new orders at this time.
0500 Patient resting in bed, stable Vs.
[2023-04-15] MEDS: XALATAN OPHTHALMIC SOLUTION 1 DROP BOTH EYES (23:15)
[2023-04-15] MEDS: TIMOPTIC 0.5% OPHTHALMIC SOLUTION 1 DROP LEFT EYE (23:15)
[2023-04-15 23:56] LABS: Urine Sodium 71 mmol/L (30-90)
[2023-04-16] VITALS (56 sets, daily range): BP systolic 70–141; BP diastolic 32–90; BMI 19.2
[2023-04-16] MEDS: MORPHINE SULFATE 1 MG IV (00:39)
[2023-04-16] MEDS: SODIUM BICARBONATE 1075 MEQ IV ×4 (03:37→23:03)
[2023-04-16] MEDS: LOPRESSOR IV ×2 (03:38→11:56)
--- NOTE | 2023-04-16 05:11 | PTCARENOTE ---
Patient down to 2 liters NC. One time dose morphine ordered by nurse consultant provider for increased work of breathing. Afebrile rest of the shift. Patient with large amount of dried debris on roof of mouth unable to be cleaned out due to patient clenching
her jaw while attempting to suction. Mouth care provided as best as possible x2.
--- NOTE | 2023-04-16 06:24 | W.PN.HOSP.TC ---
Addendum entered and electronically signed by Donte Houston MD 04/16/23 12:03:
Addendum
# Patient remains hypotensive. Will order Levophed for low blood pressure and to keep mean blood pressure more than 65. Discussed with cook pickled meat and nursing staff. Will do NG tube with midodrine.
#Discussed with the and her daughter Marie over the phone. Patient is DO NOT RESUSCITATE/DO NOT INTUBATE
Original Note:
Today's Communication/Plan
-
.
Assessment / Plan
Assessment / Plan
Physical Exam
General: ill looking
HEENT: Normocephalic and Atraumatic
Respiratory: limited
Cardiac: S1/S2 tachycardia
GI: Soft, Non Tender, Non Distended
Rectal: no bleeding
Musculoskeletal: + contractures, no edema in legs
Neuro: confused, did not follow commands, non verbal
Psych: mild agitation
#Severe Sepsis (fever, tachycardia, lactic acidosis, leukocytosis,), septic shock secondary to UTI/metabolic encephalopathy
# History of Proteus mirabilis UTI, History of recurrent hospitalization with poor functional status
Not much improved over night, continuous confusion/encephalopathy noted
Difficulty with iV Access, consulted iR for pic line
Hold oral medications due to risk of aspiration
c/w empiric IV Anx
f/w cultures
Harding catheter placement due to critical care illness and renal failure
-COVID and influenza negative
-Chest x-ray shows mild cardiomegaly without pulmonary edema
- c/w IVF , modify to dextrose 10 due to significant low glucose
# Acute respiratory distress with tachypnea.
c/w O2
No hypoxia documented
# Toxic metabolic encephalopathy
Unable to follow commands or answer questions, she is moving aimlessly in bed.
Keep NPO
Aspiration precautions
CT head in 02/10 showed diffuse atrophy, left occipital infarct, subdural hygroma
Will repeat CT head
#Permanent atrial fibrillation status post Watchman
Better controlled, heart rate around 90
Patient is unable to take oral medication. Was started on IV metoprolol, will reduce the dose to tolerate it
Continue groundwater monitoring technician
# Acute kidney injury
# Metabolic acidosis secondary to sepsis/lactic acidosis
-Bicarb drip
-Monitor I's and O's
-Harding catheter
-Renal ultrasound is ordered but not done yet
-Appreciate nephrology input
# Hypoglycemia,
Change dextrose to D10 and increase infusion rate
# Hypernatremia
Continue with dextrose infusion
# Acute on anemia of chronic disease
BM looked light brown
Status post 1 unit of blood transfusion
Recheck hemoglobin after transfusion around 8-9
- Hx of recent admission to [facility] for colitis.
-No history of rectal bleed
# valvular heart disease
Mild to moderate mitral regurgitation.
�Mild aortic regurgitation.
�Moderate to severe tricuspid regurgitation.
#Intracranial hygroma
No indication for intervention per neurosurgery evaluation in recent past
Multiple chronic multilevel vertebral body endplate fractures
#Chronic back pain status post spinal stimulator which is detached
#Mild to moderate elevation of right hemidiaphragm
#Systemic sclerosis (scleroderma)with clubbing/cyanosis of finger tips/ Raynaud''s disease without gangrene�
Changed Protonix to IV
#Pulmonary hypertension
Continue with oxygen supplement
-Continue sildenafil when able to take oral
#Essential hypertension/ Chronic thrombocytopenia
#Hyperlipidemia
-Continue statin
#History of MRSA infection
#Depression
- hold duloxetine, mirtazapine while encephalopathic
# Glaucoma
c/w eye drops
Total critical time spent to see the patient on the floor, examine the patient, review data and lab results, discuss treatment plan with patient, and nursing staff around 75 minutes
Anticipated Discharge: > 48 hours
Subjective/Interval History
-
Date of Service: April 16, 2023
Night team: unable to get blood for tests
NO fevers, no hypotension
Stable O2 requirement
Objective Data
-
Labs:
Laboratory Results
04/15/23 04/15/23 04/16/23
17:54 21:14 00:01
Hgb Pending
Hct Pending
HCO3
Sodium 134 L D 152 H D
Potassium 1.6 L* D 4.3 D
Chloride 68 L 126 H
Carbon Dioxide 67 H 17 L
BUN 28 H 40 H
Creatinine 1.5 H 3.0 H
Glucose > 2500 H* 135 H
Calcium 3.5 L* D 7.4 L D
04/16/23
00:17
Hgb
Hct
HCO3 Cancelled
Sodium
Potassium
Chloride
Carbon Dioxide
BUN
Creatinine
Glucose
Calcium
Vital Signs:
Vital Signs
Temp Pulse Resp BP Pulse Ox
98.6 F 87 21 101/80 98
04/15/23 23:35 04/16/23 05:00 04/16/23 05:00 04/16/23 05:00 04/16/23 05:00
I&O
04/14/23 04/15/23 04/16/23
06:59 06:59 06:59
Intake Total 250 / 250
Output Total 450 / 450
Balance -200 / -200
[2023-04-16] MEDS: LOPRESSOR 2.5 MG IV ×2 (06:40→18:46)
[2023-04-16 06:57] LABS: Glucose - Point of Care 22 mg/dl (70-99)
[2023-04-16 07:41] LABS: Hematocrit 26.6 % (37.0-47.0)
[2023-04-16 07:57] LABS: Hemoglobin 8.9 g/dL (12.0-16.0)
[2023-04-16 08:08] LABS: Vancomycin Random 17.3 ug/ml
--- NOTE | 2023-04-16 08:12 | PHA.VAN.FU ---
Vancomycin Assessment / Plan
- Assessment
Renal Function: SCR Increasing
In the past 24 hrs, patient has been: Febrile (101.2F)
Concomitant Antimicrobials: CEFEPIME
- Assessment - Therapeutic Drug Monitoring
Random Level: 17.3
- Dosing Plan
Dosing by Level: Hold off on dosing today
- Monitoring Plan
Random Level: 04/17 IN AM
- Follow Up
Pharmacy will continue to follow.
Vancomycin Follow UP
- -
Patient Age: 72
Patient Sex: Female
Vancomycin Day #: 3
Indication: Genito-Urinary Tract
Requesting Provider: Dr. Hopson
Pertinent Antimicrobial Allergies:
Penicillins - Rash, hives; tolerates cephalosporins
Received Ceftriaxone (September 2020, May 2020), Cefepime (September 2018), Cefuroxime (September 2020), Cefdinir (May 2020)
Height / Weight:
Height 4 ft 11 in
Actual Weight 43.1 kg
IBW in k.5
Pertinent Past Medical History: BMI ~18.6
- Vital Signs / Lab Results
Temp Pulse Resp BP Pulse Ox
99.0 F 87 21 101/80 98
04/16/23 07:40 04/16/23 05:00 04/16/23 05:00 04/16/23 05:00 04/16/23 05:00
Lab Results - Hematology
04/14/23 04/15/23 04/15/23
14:21 03:36 06:00
WBC 11.7 H 10.8 Cancelled
Lab Results - Chemistry
04/14/23 04/15/23 04/15/23
14:21 03:36 06:00
BUN 41 H 41 H Cancelled
Creatinine 3.2 H 3.2 H Cancelled
Estimated Creat Clear 10 Cancelled
Albumin 2.5 L Cancelled
0104/15/23 04/15/23
10:00 12:54 15:08
BUN Cancelled Cancelled 40 H
Creatinine Cancelled Cancelled 3.2 H
Estimated Creat Clear Cancelled Cancelled 10
Albumin
04/15/23 04/15/23
17:54 21:14
BUN 28 H 40 H
Creatinine 1.5 H 3.0 H
Estimated Creat Clear 22 10
Albumin
04/14/23 04/14/23 04/14/23
15:42 18:48 23:29
Lactic Acid 2.2 H Cancelled 3.7 H
04/15/23 04/15/23
10:00 21:14
Lactic Acid Cancelled 5.7 H*
Lab Results - Urine
04/15/23
11:40
Urine Nitrite (Reflex) Negative
Leukocyte Esterase Rfl 2+ A
Microbiology Results
04/14/23 15:41 Blood Culture - Preliminary
Blood/Venous No Growth in 24 hours- Final report to follow
04/14/23 15:42 Blood Culture - Preliminary
Blood/Venous No Growth in 24 hours- Final report to follow
04/14/23 15:42 Influenza Types A & B (RADHAMES) - Final
Nasal Swab Negative for Influenza A & B, NAAT
Negative results must be combined with clinical observations
and patient history.
Nucleic Acid Amplification test (NAAT)performed on the
[employer] platform.
Therapeutic Drug Monitoring
Random Vancomycin 17.3 ug/ml 04/16/23 07:29
--- NOTE | 2023-04-16 08:41 | VATNOTE ---
Unable to assess pt's left leg lesser saphenous 22 gauge IV site at this time due to patient positioning. Will return to assess. IV site not currently infusing.
[2023-04-16] MEDS: NSS (PRESERVATIVE FREE) 10 ML IV (09:21)
[2023-04-16] MEDS: HEPARIN 5000 UNITS SC ×2 (09:22→20:42)
[2023-04-16] MEDS: PROTONIX IV 40 MG IV (09:22)
[2023-04-16] MEDS: REVATIO PO (09:27)
[2023-04-16] MEDS: DAKIN'S SOLUTION 0.125% 1/4 STRENGTH 473 ML TOPICAL ×2 (09:35→20:38)
--- NOTE | 2023-04-16 09:41 | SUR.PHASEI ---
Pt remains nonverbal, opens eyes occ to tactile stim, audibly groaning/grunting with inspiration, sat 97 % on 2L. Incontinent brn stool, heme neg- hygiene care provided and Q2T maintained. BPs soft, all IV sites patent, D10 with sodium bicarb
infusing at 150 ml/hr.... wound care provided -see worklist. Oral care frequently attempted, pt biting on swab and yankauer. Fingertips cynotic, hx scleraderma noted. Pt for PICC placement in IR, US kidneys today. Full code status noted. Lab results
communicated to attending Dr. Houston. Will cont to closely monitor.
--- NOTE | 2023-04-16 10:10 | PTCARENOTE ---
BP dropping to 75/46, rechecked several times to verify accuracy and pt is positioned appropriately- Dr. Houston notified, awaiting orders at this time. Pt remains nonverbal and minimally responsive.
--- NOTE | 2023-04-16 11:14 | PTCARENOTE ---
Plan discussed with Dr. Houston and IR RN Jessika, pt needs central line due to difficult access...will start levophed as needed to maintain MAP of 65 or greater.
arrived at bedside. He stated that he has changed his mind and would like to make pt DNR. Dr. Houston arrived at bedside and is discussing plan with him at this time.
--- NOTE | 2023-04-16 11:22 | CON.INTV ---
Consultation
Consultation Request
Date/Time Consultation Requested: 04/16/2023 - 1049
Date/Time Consultation Performed: 04/16/2023 - 1104
Requesting Provider: Dr. Houston
Performing Provider: Dr. Gilmore
Reason for Consultation: Hypotension
Medical History
-
Chief Complaint: AMS
History of Present Illness:
72-year-old female with past medical history of UTI, depression, scleroderma, hypertension, thrombocytopenia and A-fib s/p Watchman presents with shortness of breath and AMS. Patient currently resides at the long-term ([facility]) and she has
not been eating for the last few days. On arrival to the ER she was wet and had stool on her. She is more confused today and tachycardic. No coughing, vomiting or diarrhea. She was having low-grade fever in the ER to 100.3 �F, hypotensive to
95/68 and saturating 98% on room air. She appeared confused, contracted and unkempt. Labs showed acidosis with a serum bicarbonate of 8, serum sodium of 152, creatinine 3.2, lactate 2.2, albumin level 2.5, leukocytosis to 11.7, anemic to 8.3
thrombocytopenia 113. She was COVID antigen negative. CXR showed chronic severe diffuse esophageal distention consistent with known history of scleroderma with mild�moderate elevation of her right hemidiaphragm. Patient started on fluids and
antibiotics and given bicarbonate and then admitted to the hospitalist service. Nephrology consulted. Patient's BP remained low and there was concern she may need Levophed. [facility] services consulted for ICU transfer.
After consult was placed, discussion held with the patient's who decided to make her DNR. does not want invasive interventions. I saw the patient in the IMU when she was in no acute distress, contracted and nonverbal. She was
tachycardic to 115, BP was 84/50, and she was saturating 99% on 2 L/min nasal cannula. I had discussion with the and he confirmed that she is DNR and that he does not want to do any invasive interventions for her.
PMHx: Intracranial hygroma, anemia of chronic disease, thrombocytopenia, permanent A-fib s/p watchman, hypertension, hyperlipidemia, history of MRSA, depression, scleroderma, GERD, history of UTI, gout, cataracts, history of alcohol abuse
PSHx: Appendectomy, tonsillectomy, cervical laminectomy, bilateral cataracts, TKR bilateral, Watchman procedure (2016), toe bunionectomy (March 2022), neurostimulator
Past Medical History
Past Medical History: Other (Above as per HPI)
Past Surgical History: Other (Above as per HPI)
Social History
Tobacco: Non-smoker
Alcohol: None
Drug: None
Family History
Family History: Reviewed & Not Pertinent
Allergies / Home Medications
Allergies
Allergy/AdvReac Type Severity Reaction Status Date / Time
hydromorphone [From Dilaudid] Allergy 'severe Verified 04/14/23 18:40
confusion'
per
oxycodone Allergy 'severe Verified 04/14/23 18:40
confusion'
per
Penicillins Allergy Rash, Verified 02/10/23 11:11
hives;
tolerates
cephalosporins
Home Medications
Medication Instructions Recorded Confirmed Last Taken Type
aspirin 81 mg tablet,delayed 81 mg PO HS Blood clot 09/26/18 04/14/23 02/09/23 History
release prevention/tx
latanoprost 0.005 % eye drops 1 drp BOTH EYES HS Eye condition 09/26/18 04/14/23 02/09/23 History
atorvastatin 40 mg tablet 40 mg PO HS High cholesterol 05/31/20 04/14/23 02/09/23 History
pantoprazole 40 mg tablet,delayed 40 mg PO DAILY 06/06/20 04/14/23 02/10/23 Rx
release
timolol maleate 0.5 % eye drops 1 drp LEFT EYE HS Eye condition 10/23/20 04/14/23 02/10/23 History
duloxetine 60 mg capsule,delayed 60 mg PO DAILY Pain 06/01/22 04/14/23 02/10/23 History
release
sildenafil (pulm.hypertension) 20 30 mg PO TID Lung/breathing issues 06/01/22 04/14/23 02/10/23 History
mg tablet
potassium chloride 10 mEq 10 meq PO DAILY Electrolyte 09/01/22 04/14/23 02/10/23 History
tablet,extended release Repletion
thiamine HCl (vitamin B1) 100 mg 100 mg PO DAILY Supplement 02/10/23 04/14/23 02/10/23 History
tablet (Vitamin B-1)
acetaminophen 325 mg tablet 650 mg PO Q4HPRN PRN mild 03/31/23 04/14/23 Unknown History
pain/fever
bisacodyl 10 mg rectal suppository 10 mg ME DAILY PRN constipation 03/31/23 04/14/23 Unknown History
(Dulcolax (bisacodyl))
carboxymethylcellulose sodium 1 % 1 drp BOTH EYES Q4H PRN dry eyes 03/31/23 04/14/23 Unknown History
eye drops
diltiazem HCl 30 mg tablet 30 mg PO Q8H Heart 03/31/23 04/14/23 Unknown History
Disease/Condition
magnesium oxide 400 mg PO DAILY Supplement 03/31/23 04/14/23 Unknown History
mirtazapine 7.5 mg tablet 7.5 mg PO HS Mental Health/Anxiety 03/31/23 04/14/23 Unknown History
magnesium hydroxide 400 mg/5 mL 2,400 mg PO [id number] PRN if no bm 04/14/23 04/14/23 Unknown History
oral suspension (Milk of Magnesia) by 3rd day
oxybutynin chloride 10 mg 10 mg PO DAILY Urinary Issue 04/14/23 04/14/23 Unknown History
tablet,extended release 24 hr
Review of Systems
-
Unable to Obtain full review of systems at this time due to: Patient Non Verbal
Vitals / Labs / Diagnostic Testing
Vital Signs
Temp Pulse Resp BP Pulse Ox
99.0 F 91 21 91/60 98
04/16/23 11:09 04/16/23 14:28 04/16/23 14:28 04/16/23 14:28 04/16/23 14:28
Lab Data
04/16/23 07:29
04/16/23 14:04
Laboratory Results
04/16/23
00:17
pH Cancelled
pCO2 Cancelled
pO2 Cancelled
HCO3 Cancelled
O2 Delivery Level Cancelled
Microbiology
04/15/23 11:40 Urine Urine Culture - Preliminary
Pseudomonas aeruginosa
Gram negative bacilli
04/15/23 03:56 Nose MRSA Screen - Final
Staph aureus MRSA
04/14/23 15:41 Blood/Venous Blood Culture - Preliminary
No Growth in 24 hours- Final report to follow
04/14/23 15:42 Blood/Venous Blood Culture - Preliminary
No Growth in 24 hours- Final report to follow
04/14/23 15:42 Nasal Swab Influenza Types A & B (RADHAMES) - Final
Negative for Influenza A & B, NAAT
Negative results must be combined with clinical observations
and patient history.
Nucleic Acid Amplification test (NAAT)performed on the
[employer] platform.
Diagnostic Testing:
Physical Exam
-
HEENT: Normocephalic and Anicteric
Cardiovascular: S1/S2, Peripheral Edema (negative) and Other (Tachycardic)
Respiratory: Wheeze (neg), Rales (neg) and Rhonchi (bilaterally)
GI: Soft, Non Distended and Non Tender
Neurology: Tremors (neg)
Skin: Warm and Dry
General: Comfortable, Sweats (neg) and Other (Elderly female, contracted, in mild acute distress, appears uncomfortable)
Assessment
-
Assessment: 72-year-old female with past medical history of UTI, depression, scleroderma, hypertension, thrombocytopenia and A-fib s/p Watchman presents with shortness of breath and AMS. Patient currently resides at the long-term ([facility])
and she has not been eating for the last few days. On arrival to the ER she was wet and had stool on her. She is more confused today and tachycardic. No coughing, vomiting or diarrhea. She was having low-grade fever in the ER to 100.3 �F,
hypotensive to 95/68 and saturating 98% on room air. She appeared confused, contracted and unkempt. Labs showed acidosis with a serum bicarbonate of 8, serum sodium of 152, creatinine 3.2, lactate 2.2, albumin level 2.5, leukocytosis to 11.7,
anemic to 8.3 thrombocytopenia 113. She was COVID antigen negative. CXR showed chronic severe diffuse esophageal distention consistent with known history of scleroderma with mild�moderate elevation of her right hemidiaphragm. Patient started on
fluids and antibiotics and given bicarbonate and then admitted to the hospitalist service. Nephrology consulted. Patient's BP remained low and there was concern she may need Levophed. [facility] services consulted for ICU transfer.
Chronic conditions [employer] SEC[employer]: Intracranial hygroma, anemia of chronic disease, thrombocytopenia, permanent A-fib s/p watchman, hypertension, hyperlipidemia, history of MRSA, depression, scleroderma, GERD, history of UTI, gout, cataracts, history of
alcohol abuse
Impression:
#Hypotension - likely due to hypovolemia in setting of malnutrition with hypoalbuminemia
#Sepsis without shock due to UTI
#AMS due to TME
#CARMELINA (baseline creatinine approximately 1.2)
#Hypernatremia - due to free water deficit
#Metabolic acidosis with normal anion gap -likely due to CARMELINA
#Hypoalbuminemia
#Anemia
#Thrombocytopenia
Plan:
- Administer albumin 25g 25%, q6hr x 3 doses --> this has a favorable response with her HDN and her repeat SBP went from 90s to 130s
- Insert NGT for PO access as then we can start tube feeds and midodrine if needed
- check random cortisol, TSH, free T4, T3, B12 and RPR
- If mental status does not improve would check CT head
- Broad spectrum Abx (cefepime/vanco) with infectious workup including blood and urine Cx; CXR is clear and she is not producing sputum; she likely has mucous in her upper airway hence the rhonchi on exam
- renally dose all Abx and meds, trend UOP with goal >0.5cc/kg/hr
- Maintain SpO2 >90-94% with supplemental O2 as needed
- Maintain MAP >65
- Replete K>4, Mg>2, PO4>3
- Maintain euglycemia with goal BG 140�180
- DVT prophylaxis
Patient is now DNR status. not interested in invasive procedures. Patient to be managed in the IMU. BP markedly improved with albumin. [facility] service will sign off. Please consult pulmonary service if there are any additional
questions or concerns or if respiratory status deteriorates.
(Patient seen and evaluated on 04/16/2023)
Data:
CXR 04-14-2023:
1. � Mild cardiomegaly without evidence for acute pulmonary edema.
2. � Chronic severe diffuse esophageal distention consistent with SCLERODERMA.
3. � Mild to moderate elevation of the right hemidiaphragm.
4. � Chronic multilevel vertebral body endplate fractures in the lower thoracic spine and lumbar spine with complete collapse of the T12 vertebral body. Spinal stimulator wires in the midthoracic spinal canal.
Renal US 04-16-2023:
Mild bilateral renal cortical atrophy
Small-moderate volume ascites
Right pleural effusion
--- NOTE | 2023-04-16 12:38 | W.PN.NEPH.PH ---
Today's Communication / Plan
-
cotn hypotonic bicarb IVF
Assessment/Plan
-
IMP:
Severe� Sepsis (fever, tachycardia, lactic acidosis,� leukocytosis,) possibly secondary to UTI/metabolic encephalopathy
History of Proteus mirabilis UTI
Acute respiratory distress
Permanent atrial fibrillation status post Watchman
Acute kidney injury with CKD baseline cr 1.1
mild gap and Non Gap Metabolic acidosis
Hypoglycemia
Hypernatremia
Acute on� anemia of chronic disease
valvular heart disease-Mild to moderate mitral regurgitation.Mild aortic regurgitation.Moderate to severe tricuspid regurgitation.
Intracranial hygroma
Multiple chronic multilevel vertebral body endplate fractures
Chronic back pain status post spinal stimulator which is detached
Mild to moderate elevation of right hemidiaphragm
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
Pulmonary hypertension
Essential hypertension
Chronic thrombocytopenia
Hyperlipidemia
History of MRSA infection
Depression
Glaucoma
Plan:
A/w with AMS from NH found sepsis possible source UTI
CARMELINA likely prerenal vs ATN, UA consistent with UTI
check renal US� as ordered-unable to be done
keep casarez, non oliguric
hypernatremia slowly improving on hypotonic fluids
but remains on D10 for persistent hypoglycemia
improving met acidosis with bicarb IVF, however L acid worse
hypotension, prn pressors
abx per primary,
anemia- hb better s/p PRBC 04/15
avoid nephrotoxins
she is with MODS and remains altered with poor QOL baseline
DNR per
he is aware of poor prognosis
d/w nursing and primary
CC time spent 35min
-
-
Date of Service: April 16, 2023
CC / HPI / ROS
-
Chief Complaint:
CARMELINA , met acidosis
History of Present Illness:
cr slightly better at 3, non oliguric with casarez
sodium better at 152
moved to IMU last night
BP are low but better during visit
on abx for UTI
L acid high 5.7
hb better at 8.9 post 1 unit 04/15
Review of Systems:
pt non responsive and moans
febrile last night
Labs
-
Labs:
WBC Cancelled 04/15/23 06:00
RBC Cancelled 04/15/23 06:00
Hgb 8.9 g/dL (12.0-16.0) L D 04/16/23 07:29
Hct 26.6 % (37.0-47.0) L 04/16/23 07:29
Plt Count Cancelled 04/15/23 06:00
eGFR 15.82 04/15/23 21:14
Physical Exam
-
Vital Signs:
Vital Signs
Temp Pulse Resp BP Pulse Ox
99.0 F 96 24 78/61 98
04/16/23 11:09 04/16/23 11:56 04/16/23 11:12 04/16/23 11:56 04/16/23 11:57
Cardiovascular:: Regular rate and rhythm
Respiratory:: Bilateral: Coarse
Lung Excursion:: Abnormal
Abdomen:: Nontender and Soft
Extremity Edema:: None: Bilateral:
Casarez Catheter: Yes
[2023-04-16] MEDS: FLEXBUMIN 100 IV ×2 (13:30→18:47)
[2023-04-16] MEDS: DEXTROSE 50% SYRINGE 12.5 GRAMS IV ×2 (14:03→14:43)
[2023-04-16 14:11] LABS: Glucose - Point of Care 49 mg/dl (70-99)
--- NOTE | 2023-04-16 14:17 | PTCARENOTE ---
Addendum entered by Deisy Bolton RN 04/16/23 14:50:
labs drawn and sent, glucose 106 noted.
Original Note:
Fingerstick glucose finally obtained at 14:00, result was 49. 1/2 amp 50% Dextrose administered. 1st attempt to place [place] unsuccessful, Dr. Gilmore contacted, will come to bedside to attempt. US of kidneys performed at bedside.
[2023-04-16 14:43] LABS: ALT (SGPT) 19 U/L (0-35); AST (SGOT) 55 U/L (14-36); Albumin 1.8 g/dl (3.5-5.0); Alkaline Phosphatase 84 U/L (38-126); Blood Urea Nitrogen 40 mg/dl (7-17); Calcium 7.3 mg/dl (8.4-10.2); Carbon Dioxide 23 mmol/L (22-30); Chloride 114 mmol/L (98-107); Estimated Creatinine Clearance 11 ml/min; Glucose 106 mg/dl (70-99); Magnesium 2.1 mg/dl (1.6-2.3); Phosphorus 3.2 mg/dl (2.5-4.5); Potassium 3.4 mmol/L (3.5-5.1); Sodium 151 mmol/L (135-145); Total Bilirubin 2.6 mg/dl (0.2-1.3); Total Protein 4.7 g/dl (6.3-8.2); eGFR 15.82
[2023-04-16 14:52] LABS: Glucose - Point of Care 56 mg/dl (70-99)
--- NOTE | 2023-04-16 16:43 | PTCARENOTE ---
Bedside glucose monitoring dc'd per Dr. Houston due to errant fingerstick results.
[2023-04-16] MEDS: MAXIPIME 5.65000000000000036 MG IV (17:01)
--- NOTE | 2023-04-16 17:22 | PTCARENOTE ---
Addendum entered by Deisy Bolton RN 04/16/23 17:24:
left upper inner arm noted to be ecchymotic and oozing blood from what appears to be previous PICC attempt site, pressure dressing applied, will monitor. VAT team notified via TT.
Original Note:
Foot wounds redressed and wrapped with ABD and quinten as foams continue slipping off. Pericare provided for incont BM, Q2T maintained. Holding off on NGT per Dr. Gilmore for now as her bps have improved and pt does not need Midodrine at this time.
[2023-04-16] MEDS: TIMOPTIC 0.5% OPHTHALMIC SOLUTION 1 DROP LEFT EYE (20:37)
[2023-04-16] MEDS: XALATAN OPHTHALMIC SOLUTION 1 DROP BOTH EYES (20:37)
[2023-04-17] VITALS (26 sets, daily range): BP systolic 75–121; BP diastolic 58–90; BMI 20.2
[2023-04-17] MEDS: FLEXBUMIN 100 IV (00:44)
[2023-04-17] MEDS: LOPRESSOR 2.5 MG IV ×3 (00:46→11:43)
--- NOTE | 2023-04-17 00:48 | PTCARENOTE ---
- last bag of albumin hanging- fluids per orders- pt does not speak or attempt to communicate- she opens her eyes but does not track. occasional groan. bp wnl- afebrile casarez with dark yellow output- 97% on room air
[2023-04-17 04:57] LABS: % Basophils 0.4 % (0-2); % Eosinophils 1.9 % (0-6); % Immature Granulocytes 0.5 % (0-0.5); % Lymphocytes 36.4 % (20.5-51.1); % Monocytes 7.6 % (1.7-9.3); % Neutrophils 53.2 % (42.2-75.2); Absolute Eosinophils 0.2 10^3/uL (0-0.7); Absolute Immature Granulocytes 0.1 10^3/uL (0-0.05); Absolute Lymphocytes 3.7 10^3/uL (1.2-3.4); Absolute Monocytes 0.8 10^3/uL (0.1-0.6); Absolute Neutrophils 5.4 10^3/uL (1.4-6.5); Hemoglobin 7.2 g/dL (12.0-16.0); Mean Corp Hgb Conc. 34.3 g/dL (33.0-37.0); Mean Corpuscular Hgb 30.1 pg (27.0-31.0); Mean Corpuscular Volume 87.9 fL (81.0-99.0); Mean Platelet Volume 11.1 fL (7.4-10.4); Nucleated Red Blood Cells % 0.2 %; Platelet Count 38 10^3/uL (130-400); Red Blood Cell Count 2.39 10^6/uL (4.20-5.40); White Blood Cell Count 10.1 10^3/uL (4.8-10.8)
[2023-04-17 05:22] LABS: Vancomycin Random 15.8 ug/ml
[2023-04-17 05:27] LABS: Blood Urea Nitrogen 38 mg/dl (7-17); Calcium 7.2 mg/dl (8.4-10.2); Carbon Dioxide 31 mmol/L (22-30); Chloride 103 mmol/L (98-107); Estimated Creatinine Clearance 13 ml/min; Glucose 166 mg/dl (70-99); Potassium 2.6 mmol/L (3.5-5.1); Sodium 144 mmol/L (135-145); eGFR 18.78
--- NOTE | 2023-04-17 05:40 | W.PN.UPDATE ---
Update Note
Progress Note Update
Morning labs: K+ 2.6, order to replete with Potassium Chloride 40meq IVPB
--- NOTE | 2023-04-17 05:41 | PTCARENOTE ---
large loose bm- - am k is 2.6- pharmacy technician inpatient gave order to replace see mar- pt renins unresponsive. room air to maintain sats-
[2023-04-17] MEDS: SODIUM BICARBONATE 1075 MEQ IV (05:58)
[2023-04-17] MEDS: KCL 270 MEQ IV (05:59)
--- NOTE | 2023-04-17 06:53 | W.PN.HOSP.TC ---
Addendum entered and electronically signed by Donte Houston MD 04/17/23 16:14:
Addendum
CAT scan of the head showed a small acute left frontal subdural hematoma with no mass effect. Stable subdural hygroma. Moderate chronic microvascular white matter disease.
Doubt hematoma is contributing to her encephalopathy. Hematoma likely secondary to coagulopathy from sepsis/immune mediated thrombocytopenia. Possible underlying liver disease?
Continue with transfusion of platelet/packed RBCs
End
Original Note:
Today's Communication/Plan
-
.
Assessment / Plan
Assessment / Plan
Physical Exam
General: ill looking
HEENT: Normocephalic and Atraumatic
Respiratory: limited
Cardiac: S1/S2 tachycardia
GI: Soft, Non Tender, Non Distended
Rectal: no bleeding
Musculoskeletal: + contractures, no edema in legs
Neuro: confused, did not follow commands, non verbal
Psych: mild agitation
#Severe Sepsis (fever, tachycardia, lactic acidosis, leukocytosis,), septic shock secondary to Pseudomonas UTI/metabolic encephalopathy
# History of Proteus mirabilis UTI, History of recurrent hospitalization with poor functional status
Not much improved over night, continuous confusion/encephalopathy noted
Hold oral medications due to risk of aspiration
c/w empiric IV Anx, she received Cefepime and vancomycin. Blood cultures negative X 48 hours. Will stop Vancomycin
Will adjust Gram negative bacilli according to susceptibility of urine culture
Harding catheter placement due to critical care illness and renal failure
-COVID and influenza negative
-Chest x-ray shows mild cardiomegaly without pulmonary edema
- c/w IVF , modify to dextrose 10 due to significant low glucose , Rate at 150 cc/ hour.
# Acute respiratory distress with tachypnea.
c/w O2
No hypoxia documented
# Toxic metabolic encephalopathy
No improvement despite treating with antibiotics. Encephalopathy can take several day to resolve. Underlying confusion documented in chart, suspect underlying cognitive impairment.
Unable to follow commands or answer questions, she is moving aimlessly in bed.
Keep NPO
Aspiration precautions
CT head in 02/10 showed diffuse atrophy, left occipital infarct, subdural hygroma. Will repeat CT head today
# Acute thrombocytopenia. Admission platelet 113. Platelet dropped to 38.
Mild Nosebleed with bleeding from mouth mucous membrane noted today
Differential diagnosis: Sepsis induced thrombocytopenia, medication induced thrombocytopenia, DIC, HIT
Patient was receiving subcu heparin and had received heparin in the past.
Stopped heparin. Change antibiotic. Continue to treat sepsis
Check PTT, PTT, D-dimer, HIT panel, fibrinogen level.
Transfuse 1 unit of blood
Appreciate hematology input
#Permanent atrial fibrillation status post Watchman
Better controlled, heart rate around 110
Patient is unable to take oral medication. Was started on IV metoprolol,l reduced the dose due to low Bp.
Continue court monitor
# Acute kidney injury
Creatinine down to 2.6
# Metabolic acidosis secondary to sepsis/lactic acidosis
-Bicarb drip, can stop it today
-Monitor I's and O's
-Harding catheter is placed with some difficultly, small size is used now.
-Renal ultrasound showed mild bilateral renal cortical atrophy, small-moderate volume ascites, right pleural effusion
-Appreciate nephrology input
# Hypoglycemia,
Changed dextrose to D10 and increase infusion rate
Unable to get accurate measurements from Accu-check due to PVD related to SS. Blood glucose was 166 this morning.
# Hypernatremia
Resolved with D10 W
Continue with dextrose infusion
# Acute on anemia of chronic disease
BM looked light brown
Status post 1 unit of blood transfusion
Recheck hemoglobin after transfusion around 8-9
- Hx of recent admission to [facility] for colitis.
-No history of rectal bleed
# valvular heart disease
Mild to moderate mitral regurgitation.
�Mild aortic regurgitation.
�Moderate to severe tricuspid regurgitation.
#Intracranial hygroma
No indication for intervention per neurosurgery evaluation in recent past
Repeat CT head today
Multiple chronic multilevel vertebral body endplate fractures
#Chronic back pain status post spinal stimulator which is detached
#Mild to moderate elevation of right hemidiaphragm
#Systemic sclerosis (scleroderma)with clubbing/cyanosis of finger tips/ Raynaud''s disease without gangrene�
Changed Protonix to IV
#Pulmonary hypertension
Continue with oxygen supplement
Hold sildenafil due to hypotension
#Essential hypertension/ Chronic thrombocytopenia
#Hyperlipidemia
-Continue statin
#History of MRSA infection. MRSA positive in the nose but not in blood
#Depression
- hold duloxetine, mirtazapine while encephalopathic
# Glaucoma
c/w eye drops
# CODE STATUS. Discussed with the and daughter Marie
Patient is DO NOT RESUSCITATE/DO NOT INTUBATE
Family is aware that prognosis is guarded and patient is critically ill
Total critical time spent to see the patient on the floor, examine the patient, review data and lab results, discuss treatment plan with patient, and nursing staff around 75 minutes
Anticipated Discharge: > 48 hours
Subjective/Interval History
-
Date of Service: April 17, 2023
Encephalopathic, restless, confused, not following commands
Low K and low platelet with nose bleeding this morning
Objective Data
-
Labs:
Laboratory Results
04/17/23
04:07
WBC 10.1
Hgb 7.2 L
Hct 21.0 L
Plt Count 38 L D
Sodium 144
Potassium 2.6 L*
Chloride 103
Carbon Dioxide 31 H
BUN 38 H
Creatinine 2.6 H
Glucose 166 H
Calcium 7.2 L
Vital Signs:
Vital Signs
Temp Pulse Resp BP Pulse Ox
98.3 F 117 30 103/85 95
04/17/23 03:06 04/17/23 06:27 04/17/23 06:27 04/17/23 06:27 04/17/23 06:27
I&O
04/15/23 04/16/23 04/17/23
06:59 06:59 06:59
Intake Total 250 / 250 3700 / 3700
Output Total 450 / 450 1025 / 1025
Balance -200 / -200 2675 / 2675
--- NOTE | 2023-04-17 07:44 | PHA.VAN.FU ---
Vancomycin Assessment / Plan
- Assessment
Renal Function: SCR Decreasing (3-->2.6)
WBC's are: WNL
In the past 24 hrs, patient has been: Afebrile
Concomitant Antimicrobials: CEFEPIME
- Assessment - Therapeutic Drug Monitoring
Random Level: 15.8
- Dosing Plan
Dosing by Level: Hold off on dosing today
- Monitoring Plan
Random Level: 04/18 IN AM
- Follow Up
Pharmacy will continue to follow.
Vancomycin Follow UP
- -
Patient Age: 72
Patient Sex: Female
Vancomycin Day #: 4
Indication: Genito-Urinary Tract
Requesting Provider: Dr. Hopson
Pertinent Antimicrobial Allergies:
Penicillins - Rash, hives; tolerates cephalosporins
Received Ceftriaxone (September 2020, May 2020), Cefepime (September 2018), Cefuroxime (September 2020), Cefdinir (May 2020)
Height / Weight:
Height 4 ft 11 in
Actual Weight 45.4 kg
IBW in k.5
Pertinent Past Medical History: BMI ~18.6
- Vital Signs / Lab Results
Temp Pulse Resp BP Pulse Ox
99.9 F 117 30 103/85 95
04/17/23 07:26 04/17/23 06:27 04/17/23 06:27 04/17/23 06:27 04/17/23 06:27
Lab Results - Hematology
04/14/23 04/15/23 04/15/23
14:21 03:36 06:00
WBC 11.7 H 10.8 Cancelled
04/17/23
04:07
WBC 10.1
Lab Results - Chemistry
04/14/23 04/15/23 04/15/23
14:21 03:36 06:00
BUN 41 H 41 H Cancelled
Creatinine 3.2 H 3.2 H Cancelled
Estimated Creat Clear 10 Cancelled
Albumin 2.5 L Cancelled
04/15/23 04/15/23 04/15/23
10:00 12:54 15:08
BUN Cancelled Cancelled 40 H
Creatinine Cancelled Cancelled 3.2 H
Estimated Creat Clear Cancelled Cancelled 10
Albumin
04/15/23 04/15/23 04/16/23
17:54 21:14 14:04
BUN 28 H 40 H 40 H
Creatinine 1.5 H 3.0 H 3.0 H
Estimated Creat Clear 22 10 11
Albumin 1.8 L
04/17/23
04:07
BUN 38 H
Creatinine 2.6 H
Estimated Creat Clear 13
Albumin
04/14/23 04/14/23 04/14/23
15:42 18:48 23:29
Lactic Acid 2.2 H Cancelled 3.7 H
04/15/23 04/15/23
10:00 21:14
Lactic Acid Cancelled 5.7 H*
Lab Results - Urine
04/15/23
11:40
Urine Nitrite (Reflex) Negative
Leukocyte Esterase Rfl 2+ A
Microbiology Results
04/15/23 11:40 Urine Culture - Preliminary
Urine Pseudomonas aeruginosa
Gram negative bacilli
04/14/23 15:41 Blood Culture - Preliminary
Blood/Venous No Growth in 48 hours- Final report to follow
04/14/23 15:42 Blood Culture - Preliminary
Blood/Venous No Growth in 48 hours- Final report to follow
04/15/23 03:56 MRSA Screen - Final
Nose Staph aureus MRSA
Therapeutic Drug Monitoring
Random Vancomycin 15.8 ug/ml 04/17/23 04:07
[2023-04-17] MEDS: HEPARIN SC (07:54)
[2023-04-17] MEDS: TYLENOL/FEVERALL 650 MG RECTAL (08:02)
[2023-04-17] MEDS: PROTONIX IV 40 MG IV (08:06)
[2023-04-17] MEDS: NSS (PRESERVATIVE FREE) 10 ML IV (08:06)
[2023-04-17] MEDS: DAKIN'S SOLUTION 0.125% 1/4 STRENGTH 473 ML TOPICAL ×2 (10:24→22:06)
[2023-04-17] MEDS: DILAUDID 0.25 MG IV ×2 (11:57→22:37)
--- NOTE | 2023-04-17 12:39 | VATNOTE ---
Attempted IV access x3 unsuccessfully. Pt continues to have 2 IV sites (one in foot). Discussed with PCN Analilia Henriquez, will discuss need for additional access with Dr. Houston and consult IR if needed for additional access.
--- NOTE | 2023-04-17 13:05 | PTCARENOTE ---
Assumed care of pt during walking round, pt noted to have blood crusted on nares and oral mucosa. Labwork resulted with a PLT count of [address] Huoston at bedside at this time and orders received for CT of head, Platelets, Hematology
consult and PRBCs. Pt with low grade temp and elevated resp rate and heart rate in 120s at begin of shift. Ongoing care provided per MD orders. Pt difficult to draw labwork and Dr. Houston aware and we will wait to redraw labs after pt's daughter
arrives and they discuss continuation of care or transition to Hospice. Pt appeared uncomfortable with moaning and resp rate 32, IV Dilaudid given and pt moaning stopped and resp rate now 24. at bedside and aware of morning events and he
wishes to discuss with daughter who should be arriving this afternoon
--- NOTE | 2023-04-17 13:07 | CON.ONC ---
Impression
Impression
Chronici thrombocytopenia likely reactive to sepsis // immune mediated
anemia likely CKD/ inflammatory
Plan
Plan
agree with check of HIT-- would transfuse platelts for active oral bleeding-- check coags for vit K deficiency-- supportive care
Patient History
History of Present Illness
Unfortunate 72yo AF with hx of dementia evaluated for thrombocytopenia and oral/gingival bleeding/ easy bruising with new but recurrent thrombocytopenias associated in the past with prior admissions for sepsis. She has had multiple admissions
related to urosepsis woith recovery of plt to normal range. She is non interactive w/ hx taken from the chart and nursing staff.
Past-Medical/Surgical History
afib; mitral regurg; HTN, hyperlipidemnia ; cerebral amyloid angiopathy; chronic ?ITP; B12 deficiency
Patient Medication
Medication Instructions Recorded Confirmed Last Taken Type
aspirin 81 mg tablet,delayed 81 mg PO HS Blood clot 09/26/18 04/14/23 02/09/23 History
release prevention/tx
latanoprost 0.005 % eye drops 1 drp BOTH EYES HS Eye condition 09/26/18 04/14/23 02/09/23 History
atorvastatin 40 mg tablet 40 mg PO HS High cholesterol 05/31/20 04/14/23 02/09/23 History
pantoprazole 40 mg tablet,delayed 40 mg PO DAILY 06/06/20 04/14/23 02/10/23 Rx
release
timolol maleate 0.5 % eye drops 1 drp LEFT EYE HS Eye condition 10/23/20 04/14/23 02/10/23 History
duloxetine 60 mg capsule,delayed 60 mg PO DAILY Pain 06/01/22 04/14/23 02/10/23 History
release
sildenafil (pulm.hypertension) 20 30 mg PO TID Lung/breathing issues 06/01/22 04/14/23 02/10/23 History
mg tablet
potassium chloride 10 mEq 10 meq PO DAILY Electrolyte 09/01/22 04/14/23 02/10/23 History
tablet,extended release Repletion
thiamine HCl (vitamin B1) 100 mg 100 mg PO DAILY Supplement 02/10/23 04/14/23 02/10/23 History
tablet (Vitamin B-1)
acetaminophen 325 mg tablet 650 mg PO Q4HPRN PRN mild 03/31/23 04/14/23 Unknown History
pain/fever
bisacodyl 10 mg rectal suppository 10 mg CO DAILY PRN constipation 03/31/23 04/14/23 Unknown History
(Dulcolax (bisacodyl))
carboxymethylcellulose sodium 1 % 1 drp BOTH EYES Q4H PRN dry eyes 03/31/23 04/14/23 Unknown History
eye drops
diltiazem HCl 30 mg tablet 30 mg PO Q8H Heart 03/31/23 04/14/23 Unknown History
Disease/Condition
magnesium oxide 400 mg PO DAILY Supplement 03/31/23 04/14/23 Unknown History
mirtazapine 7.5 mg tablet 7.5 mg PO HS Mental Health/Anxiety 03/31/23 04/14/23 Unknown History
magnesium hydroxide 400 mg/5 mL 2,400 mg PO [id number] PRN if no bm 04/14/23 04/14/23 Unknown History
oral suspension (Milk of Magnesia) by 3rd day
oxybutynin chloride 10 mg 10 mg PO DAILY Urinary Issue 04/14/23 04/14/23 Unknown History
tablet,extended release 24 hr
Active Medications
Generic Name Dose Route Start Last Admin
Trade Name Freq PRN Reason Stop Dose Admin
Acetaminophen 650 mg 04/15/23 20:19 04/17/23 08:02
Acetaminophen 650 Mg Rectal Suppository RECTAL 05/13/23 20:18 650 mg
Q4HPRN PRN Administration
fever>100.4 or mild pain
Bisacodyl 10 mg 04/14/23 18:20
Bisacodyl 10 Mg Rectal Suppository RECTAL 05/12/23 18:19
DAILYPRN PRN
constipation
Carboxymethylcellulose Sodium 1 drops 04/14/23 18:53 04/15/23 21:20
Carboxymethylcellulose Ophth Gel (Celluvisc) Droperette BOTH EYES 05/12/23 18:52 1 drops
Q4HPRN PRN Administration
dry eyes
Dextrose 12.5 grams 04/15/23 05:10 04/16/23 14:43
Dextrose 50% (0.5 Grams/Ml) 50 Ml Syringe IV 05/13/23 05:09 12.5 grams
[id number] PRN Administration
hypoglycemia
Protocol
Glucagon 1 mg 04/15/23 05:10
Glucagon 1 Mg Vial IM 05/13/23 05:09
PRN PRN
hypoglycemia
Protocol
Hydromorphone HCl 0.25 mg 04/17/23 11:30 04/17/23 11:57
Hydromorphone 0.5 Mg/0.5 Ml Syringe IV 05/01/23 11:29 0.25 mg
Q4HPRN PRN Administration
respiratory distress
Cefepime HCl 500 mg/ Device 5.65 mls @ 67.8 mls/hr 04/15/23 18:00 04/16/23 17:01
IV 5.65 mls
Q24H FELICITA Administration
Sodium Bicarbonate 75 meq/ 1,075 mls @ 150 mls/hr 04/15/23 18:30 04/17/23 05:58
Dextrose IV 1,075 mls
.Q7H10M FELICITA Administration
Latanoprost 0 drop 04/14/23 22:00 04/16/23 20:37
Latanoprost 0.005% (Ophthalmic Solution) 2.5 Ml Bottle BOTH EYES 05/12/23 21:59 1 drop
HS FELICITA Administration
Metoprolol Tartrate 2.5 mg 04/16/23 06:21 04/17/23 11:43
Metoprolol 5 Mg/5 Ml Vial IV 05/13/23 15:59 2.5 mg
Q6H FELICITA Administration
Midodrine 5 mg 04/16/23 12:07
Midodrine 5 Mg Tablet PO 05/14/23 12:06
Q4HPRN PRN
SBP less than 100
Pantoprazole Sodium 40 mg 04/15/23 09:00 04/17/23 08:06
Pantoprazole Sodium 40 Mg/10 Ml Vial IV 05/13/23 08:59 40 mg
DAILY FELICITA Administration
Sodium Chloride 0 flush 04/14/23 19:00 04/15/23 12:07
Sodium Chloride 0.9% (Flush) Syringe IV 05/12/23 18:59 2 flush
PER PROTOCOL FELICITA Administration
Sodium Chloride 10 ml 04/15/23 09:00 04/17/23 08:06
Sodium Chloride 0.9% (Preservative Free) 10 Ml Vial IV 05/13/23 08:59 10 ml
DAILY FELICITA Administration
Sodium Hypochlorite 0 ml 04/15/23 20:00 04/17/23 10:24
Dakin's Solution 0.125% (1/4 Strength) 473 Ml Bottle TOPICAL 05/13/23 19:59 473 ml
BID FELICITA Administration
Timolol Maleate 0 drop 04/14/23 22:00 04/16/23 20:37
Timolol 0.5% (Ophthalmic Solution) Bottle LEFT EYE 05/12/23 21:59 1 drop
HS FELICITA Administration
Review of Systems
-
Unable to obtain full review of systems at this time due to: Dementia
History Source: Records
All Other Systems: Reviewed and Negative
Physical Exam
-
General: Appears Chronically Ill and Cachetic
HEENT: Moist Mucous Membranes and Other (bleeding gingival/ mucosal)
Cardiology: Irregular Rate/Rhythm
Pulmonary: Rhonchi
GI: Soft and Normal Bowel Sounds
Extremities: Other (contractures)
Skin: Other (multiple ecchymoses thomas IV stick sites)
Labs
Lab Results
WBC 10.1 10^3/uL (4.8-10.8) 04/17/23 04:07
RBC 2.39 10^6/uL (4.20-5.40) L 04/17/23 04:07
Hgb 7.2 g/dL (12.0-16.0) L 04/17/23 04:07
Hct 21.0 % (37.0-47.0) L 04/17/23 04:07
MCV 87.9 fL (81.0-99.0) 04/17/23 04:07
MCH 30.1 pg (27.0-31.0) 04/17/23 04:07
MCHC 34.3 g/dL (33.0-37.0) 04/17/23 04:07
RDW 19.0 % (11.5-14.5) H 04/17/23 04:07
Plt Count 38 10^3/uL (130-400) L D 04/17/23 04:07
MPV 11.1 fL (7.4-10.4) H 04/17/23 04:07
Abs Immat Gran (auto) 0.1 10^3/uL (0-0.05) H 04/17/23 04:07
Absolute Neuts (auto) 5.4 10^3/uL (1.4-6.5) 04/17/23 04:07
Absolute Lymphs (auto) 3.7 10^3/uL (1.2-3.4) H 04/17/23 04:07
Absolute Monos (auto) 0.8 10^3/uL (0.1-0.6) H 04/17/23 04:07
Absolute Eos (auto) 0.2 10^3/uL (0-0.7) 04/17/23 04:07
Absolute Basos (auto) 0.0 10^3/uL (0-0.2) 04/17/23 04:07
Immature Gran % 0.5 % (0-0.5) 04/17/23 04:07
Neutrophils % 53.2 % (42.2-75.2) 04/17/23 04:07
Lymphocytes % 36.4 % (20.5-51.1) 04/17/23 04:07
Monocytes % 7.6 % (1.7-9.3) 04/17/23 04:07
Eosinophils % 1.9 % (0-6) 04/17/23 04:07
Basophils % 0.4 % (0-2) 04/17/23 04:07
Creatinine 2.6 mg/dL (0.6-1.0) H 04/17/23 04:07
Vital Signs
Vital Signs
Temp Pulse Resp BP Pulse Ox
98.4 F 104 22 90/68 95
04/17/23 12:43 04/17/23 12:43 04/17/23 12:43 04/17/23 12:43 04/17/23 11:59
--- NOTE | 2023-04-17 13:35 | W.PN.NEPH.PH ---
Today's Communication / Plan
-
adjust IVF
Assessment/Plan
-
IMP:
Severe� Sepsis (fever, tachycardia, lactic acidosis,� leukocytosis,) possibly secondary to UTI/metabolic encephalopathy
History of Proteus mirabilis UTI
Acute respiratory distress
Permanent atrial fibrillation status post Watchman
Acute kidney injury with CKD baseline cr 1.1
mild gap and Non Gap Metabolic acidosis
Hypoglycemia
Hypernatremia
Acute on� anemia of chronic disease
valvular heart disease-Mild to moderate mitral regurgitation.Mild aortic regurgitation.Moderate to severe tricuspid regurgitation.
Intracranial hygroma
Multiple chronic multilevel vertebral body endplate fractures
Chronic back pain status post spinal stimulator which is detached
Mild to moderate elevation of right hemidiaphragm
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
Pulmonary hypertension
Essential hypertension
Chronic thrombocytopenia
Hyperlipidemia
History of MRSA infection
Depression
Glaucoma
Plan:
A/w with AMS from [facility] found sepsis possible source UTI
CARMELINA likely prerenal vs ATN, UA consistent with UTI
non acute renal US
keep casarez, non oliguric
hypernatremia improving on hypotonic fluids
hypoglycemia better on labs than fingerstick
evolving met alkalosis
change iVF to D5 1/2NS with bicarb and kcl
Bp remains soft
abx per primary,
anemia- hb better s/p PRBC 04/15
worsening thrombocytopenia, concern of DIC
avoid nephrotoxins
she is with MODS and remains altered with poor QOL baseline
waiting for daughter to come and likely move to comfort care
d/w nursing and primary
CC time spent 31min
-
-
Date of Service: April 17, 2023
CC / HPI / ROS
-
Chief Complaint:
CARMELINA , met acidosis
History of Present Illness:
cr slightly better at 2.6
sodium better at 144
Bp soft, not on pressors
on abx for UTI
L acid high 5.7 04/16
hb low 7.2, plt 30k post 1 unit 04/15
Review of Systems:
pt non responsive and grunting
non oliguric with casarez
Labs
-
Labs:
WBC 10.1 10^3/uL (4.8-10.8) 04/17/23 04:07
RBC 2.39 10^6/uL (4.20-5.40) L 04/17/23 04:07
Hgb 7.2 g/dL (12.0-16.0) L 04/17/23 04:07
Hct 21.0 % (37.0-47.0) L 04/17/23 04:07
Plt Count 38 10^3/uL (130-400) L D 04/17/23 04:07
Sodium 144 mmol/L (135-145) 04/17/23 04:07
Potassium 2.6 mmol/L (3.5-5.1) L* 04/17/23 04:07
Chloride 103 mmol/L (98-107) 04/17/23 04:07
Carbon Dioxide 31 mmol/L (22-30) H 04/17/23 04:07
BUN 38 mg/dl (7-17) H 04/17/23 04:07
Creatinine 2.6 mg/dL (0.6-1.0) H 04/17/23 04:07
eGFR 18.78 04/17/23 04:07
Glucose 166 mg/dl (70-99) H 04/17/23 04:07
Calcium 7.2 mg/dl (8.4-10.2) L 04/17/23 04:07
Phosphorus 3.2 mg/dl (2.5-4.5) 04/16/23 14:04
Albumin 1.8 g/dl (3.5-5.0) L 04/16/23 14:04
Physical Exam
-
Vital Signs:
Vital Signs
Temp Pulse Resp BP Pulse Ox
98.4 F 104 22 90/68 95
04/17/23 12:43 04/17/23 12:43 04/17/23 12:43 04/17/23 12:43 04/17/23 11:59
Cardiovascular:: Regular rate and rhythm
Respiratory:: Bilateral: Coarse
Lung Excursion:: Abnormal
Abdomen:: Nontender and Soft
Extremity Edema:: None: Bilateral:
Casarez Catheter: Yes
--- NOTE | 2023-04-17 16:14 | W.PN.UPDATE ---
Update Note
Progress Note Update
Meeting with Mr. Benton and daughter Marie ( nurse)
Goal of care was discussed with family. reported that expressed her wishes in the past to peacefully and swiftly if her condition to deteriorate with no improvement ( she did not want to linger).
Upon discussion with the and daughter. She was treated in [facility] and they reported a diagnosis of liver cirrhosis/esophageal varices and GI bleeding during that hospitalization. According to our records, scan of the abdomen in
January 2023 showed minimal cholelithiasis with bile duct dilatation with unremarkable liver/spleen.
Will request records from [facility]. Family reported history of chronic alcoholism in the past but no recently as she was in hospital ( month in [facility] and one week in [facility]) before coming in here. .
Will do trial of lactulose enema.
Family agreed to hold off on frequent blood work checks knowing that patient might in the next few hours/day
They were very clear that patient wanted to be comfortable and not suffering. Treatment will continue with noninvasive approach as antibiotic, mild IV fluid, morphine as needed, rectal lactulose. Avoid invasive tubes/procedures as nasogastric
tubes specially with history of esophageal varices and coagulopathy.
Will repeat the blood work in the morning. Currently, patient is hemodynamically stable with no need to use pressure support. If her condition worsens, will consult hospice for inpatient hospice care.
All questions were answered. Family verbalized understanding, and the medical team will be available to answer any further questions.
[2023-04-17] MEDS: LACTULOSE ENEMA 300 ML RECTAL ×2 (16:33→22:06)
--- NOTE | 2023-04-17 17:25 | PTCARENOTE ---
Addendum entered by Analilia Henriquez RN 04/17/23 20:00:
Plan of care discussed with and pt's daughter Marie as they were leaving the bedside this pm. This RN confirmed that they do not want IRAD or central line placement if peripheral IV access is lost. Pt's skin care provided throughout the
day as she has multiple open areas and care provided if dressing lifted or became soiled. Cleansed and silicone border dressings applied, ABDs applied for additional padding and then Faye to keep in place. Patient provided with gentle oral care
today as she did have a tooth fall out of her mouth this am during a morning turn. Both doctor and family made aware. Pt has much dry bloody drainage in oral cavity and again gentle care provided with suction and sponge.
Original Note:
Patient recieved Platelets, 1 unit PRBcs, lactulose enema per MD orders. pt's BP 80/60. Dr. Houston notified and order to continue with IVF per Nephrology and no further action at this time. Pt's mal and daughter had me with doctor this
afternoon and discussed the seriousness of patient's condition and agree to minimally invasive care. IV access is 1 peripheral arm and I INT in foot. Dr. Houston aware and will not pursue a central line at this time.
[2023-04-17] MEDS: D5/0.45%NSS with KCL 20 MEQ 1000 IV (17:29)
[2023-04-17] MEDS: LOPRESSOR IV (17:56)
[2023-04-17] MEDS: SODIUM BICARBONATE IV (18:00)
--- NOTE | 2023-04-17 18:16 | PTCARENOTE ---
Family left for short time and now back at bedside.
[2023-04-17] MEDS: MAXIPIME 5.65000000000000036 MG IV (19:27)
--- NOTE | 2023-04-17 20:00 | PTCARENOTE ---
Resumed care of pt laying in bed, responsive to deep pain. Pt does not track, pupils pinpoint, deviated to the right. Sclera edema noted, blood shot. Only movement seen is left arm. Absent hand grasps. Body contracted t/o. HR in the 90's to low
100's in Afib on the monitor. +3 generalized anasarca noted. Lungs course/ dec t/o. Hyper bowel. Rectal trumpet in place draining brown liquid stool. Harding cath in place draining scant amount sancho urine. Wounds t/o body, dressings intact at this
time. Dry blood noted to lips/ mouth, oral care provided. Bleeding noted. LUE int in place infusing IVF as ordered. Pt turned and repositioned. Will continue to monitor.
[2023-04-17] MEDS: XALATAN OPHTHALMIC SOLUTION 1 DROP BOTH EYES (22:06)
[2023-04-17] MEDS: TIMOPTIC 0.5% OPHTHALMIC SOLUTION 1 DROP LEFT EYE (22:07)
--- NOTE | 2023-04-17 22:54 | PTCARENOTE ---
Pt given Lactulose enema per MD order. Pt repositioned. Pt moving left arm, and moaning. PRN Pain medication administered as ordered. Will continue to monitor.
[2023-04-18] VITALS (9 sets, daily range): BP systolic 70–95; BP diastolic 53–74
[2023-04-18] MEDS: LOPRESSOR IV ×3 (00:43→13:44)
[2023-04-18] MEDS: LACTULOSE ENEMA 300 ML RECTAL (03:22)
[2023-04-18] MEDS: DILAUDID 0.25 MG IV (03:22)
[2023-04-18 04:04] LABS: Hematocrit 26.2 % (37.0-47.0); Mean Corp Hgb Conc. 35.1 g/dL (33.0-37.0); Mean Corpuscular Hgb 30.4 pg (27.0-31.0); Mean Corpuscular Volume 86.5 fL (81.0-99.0); Mean Platelet Volume 11.1 fL (7.4-10.4); Platelet Count 32 10^3/uL (130-400); Red Blood Cell Count 3.03 10^6/uL (4.20-5.40); Red Cell Dist. Width 17.3 % (11.5-14.5); White Blood Cell Count 8.6 10^3/uL (4.8-10.8)
[2023-04-18 04:12] LABS: Ammonia 22 umol/L (9-30)
[2023-04-18 04:15] LABS: Hemoglobin 9.2 g/dL (12.0-16.0)
[2023-04-18 04:18] LABS: ALT (SGPT) 24 U/L (0-35); AST (SGOT) 82 U/L (14-36); Albumin 1.9 g/dl (3.5-5.0); Alkaline Phosphatase 67 U/L (38-126); Blood Urea Nitrogen 36 mg/dl (7-17); Calcium 6.7 mg/dl (8.4-10.2); Carbon Dioxide 29 mmol/L (22-30); Chloride 105 mmol/L (98-107); Estimated Creatinine Clearance 13 ml/min; Glucose 94 mg/dl (70-99); Potassium 2.2 mmol/L (3.5-5.1); Sodium 143 mmol/L (135-145); Total Bilirubin 4.6 mg/dl (0.2-1.3); Total Protein 4.5 g/dl (6.3-8.2); eGFR 18.78
--- NOTE | 2023-04-18 04:47 | W.PN.UPDATE ---
Update Note
Progress Note Update
Morning labs: K+ 2.2, order to replete with Potassium Chloride 40meq IVPB; Calcium 6.7 corrected to 8.4 with hypoalbuminemia.
[2023-04-18] MEDS: KCL 270 MEQ IV (05:19)
--- NOTE | 2023-04-18 08:43 | PTOTSP ---
Speech Language Pathology
Pt seen for clinical bedside swallow evaluation. Dried blood noted on lips. Attempted gentle oral care with use of suction swab. Pt orally resistant. Attempted ice chips to lips with no response. Trialed thin water via pipetted straw with no
oral manipulation. BRICK OFF BEARER suctioned bolus from oral cavity. Further P.O. trials deferred. Pt currently not appropriate for P.O. diet.
Recommend:
(1) Strict NPO
(2) Non-oral meds
(3) Oral care 4x/day with suctioning as needed
(4) Not appropriate for Aspiration Risk Hydration Protocol (ARHP) given lethargy and absent swallow
(5) BRICK OFF BEARER to continue to follow as appropriate
[2023-04-18] MEDS: D5/0.45%NSS with KCL 20 MEQ 1000 IV (08:51)
[2023-04-18] MEDS: PROTONIX IV 40 MG IV (08:52)
[2023-04-18] MEDS: NSS (PRESERVATIVE FREE) 10 ML IV (08:52)
--- NOTE | 2023-04-18 10:13 | W.PN.ONC2 ---
Today's Communication / Plan
-
Will sign off with pt moving toward comfort care. Please call if questions.
Impression
Impression
Sepsis
Acute cytopenias due to sepsis in pt with intermittent cytopenias which appear to normalize back to baseline
Plan
Plan
Pt appears to be moving toward comfort care.
Cytopenias reflect her overall clinicall status.
Subjective/Objective
Chief Complaint
Heme/Onc follow up of pancytopenia
Subjective
72-year-old woman known to Dr. Farah from the outpatient setting for history of cytopenias. She was last seen in April 2017, for evaluation of thrombocytopenia and clearance for an orthopedic procedure. There was a family history of blood
dyscrasia related to exposure to the nuclear bomb in [facility]. Her thrombocytopenia dated back to at least 113 K documented in 2012. As of the April 2017 visit, the lower end of her platelet count range was 98 K. Spleen size was normal. It
appears that in between hospitalizations, her counts have been normalizing as 03/31/23 CBC showed Plt 188. Hgb was 9,5 on but had been 12.6 on 11/27/22.
Now critically ill with family moving toward comfort care.
Vital Signs:
Vital Signs
Temp Pulse Resp BP Pulse Ox
96.2 F L 86 18 86/64 96
04/18/23 07:15 04/18/23 05:22 04/18/23 04:00 04/18/23 05:22 04/18/23 02:17
Lab Results:
Laboratory Data
WBC 8.6 10^3/uL (4.8-10.8) 04/18/23 03:41
Hgb 9.2 g/dL (12.0-16.0) L D 04/18/23 03:41
Plt Count 32 10^3/uL (130-400) L 04/18/23 03:41
PT Cancelled 04/17/23 12:27
INR Cancelled 04/17/23 12:27
APTT Cancelled 04/17/23 12:27
eGFR 18.78 04/18/23 03:41
04/14/2023: WBC 11.7, Hgb 8.3, PLT 113
No recent coags
Cr trend: 02/14/2023: 1.0, 02/16/2023 1.1, 03/31/2023 2.1, 04/14/2023 3.2.
Tbili 4.6, not yet fractionated.
Physical Exam
Unresponsive
Marked acral cyanosis b/l hands
Review of Systems
Review of Systems
could not obtain d/t unresponsive
--- NOTE | 2023-04-18 13:22 | W.PN.HOSP.TC ---
Today's Communication/Plan
-
initiate actual comfort measures with morphine drip, ativan prn
stop all meds
Assessment / Plan
Assessment / Plan
Assessment:
Severe Sepsis (fever, tachycardia, lactic acidosis, leukocytosis,),
septic shock secondary to Pseudomonas UTI/metabolic encephalopathy
History of Proteus mirabilis UTI, History of recurrent hospitalization with poor functional status
- no improvement despite empiric Abx and Harding placement
TME in setting of above
- no improvement despite empiric Abx and Harding placement
- continued somnolence, lethargy
Small acute left frontal subdural hematoma. No associated mass effect.
Acute thrombocytopenia from sepsis vs HIT vs DIC
Mild Nosebleed with bleeding from mouth mucous membrane noted today
Permanent atrial fibrillation status post Watchman
Acute kidney injury
Metabolic acidosis secondary to sepsis/lactic acidosis
Hypoglycemia
Hypernatremia
Acute on anemia of chronic disease
Hx of recent admission to [facility] for colitis.
valvular heart disease
Mild to moderate mitral regurgitation.
Mild aortic regurgitation.
Moderate to severe tricuspid regurgitation.
Intracranial hygroma
Multiple chronic multilevel vertebral body endplate fractures
Chronic back pain status post spinal stimulator which is detached
Mild to moderate elevation of right hemidiaphragm
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
Pulmonary hypertension
Essential hypertension/ Chronic thrombocytopenia
Hyperlipidemia
History of MRSA infection. MRSA positive in the nose but not in blood
Depression
Glaucoma
Dispo: Comfort measures, initiate Morphine infusion due to significant grimacing
Anticipated Discharge: Within 24 hours
Subjective/Interval History
-
Date of Service: April 18, 2023
patient remains somnolent, did not improved with rectal lactulose
Objective Data
-
Labs:
Laboratory Results
04/18/23
03:41
WBC 8.6
Hgb 9.2 L D
Hct 26.2 L
Plt Count 32 L
Sodium 143
Potassium 2.2 L*
Chloride 105
Carbon Dioxide 29
BUN 36 H
Creatinine 2.6 H
Glucose 94
Calcium 6.7 L*
Total Bilirubin 4.6 H D
AST 82 H
ALT 24
Alkaline Phosphatase 67
Vital Signs:
Vital Signs
Temp Pulse Resp BP Pulse Ox
99.2 F 84 13 82/53 95
04/18/23 11:25 04/18/23 12:00 04/18/23 12:00 04/18/23 12:00 04/18/23 12:00
I&O
04/17/23 04/18/23 04/19/23
06:59 06:59 06:59
Intake Total 3700 / 3700 1761 / 1761
Output Total 1025 / 1025 150 / 150
Balance 2675 / 2675 1611 / 1611
Physical Exam
-
General: Appears in Distress and Pain (grimacing, wincing)
HEENT: Normocephalic and Atraumatic
Respiratory: Negative Wheezes or Rales
Cardiac: Regular Rhythm and S1/S2
GI: Soft
Genito-urinary: No Costovertebral Tender
Skin: Jaundice
Psych: Calm
Data Reviewed
-
Total Time Spent with Patient (in minutes): 45
Labs: Labs Reviewed by me
[2023-04-18] MEDS: DAKIN'S SOLUTION 0.125% 1/4 STRENGTH TOPICAL (13:43)
[2023-04-18] MEDS: MORPHINE 100 IV (14:00)
[2023-04-18] MEDS: MORPHINE SULFATE 1 MG IV ×3 (14:21→15:43)
--- NOTE | 2023-04-18 16:58 | PTCARENOTE ---
Patient is now on comfort care, Morphine drip at 1mg/ hour, phase one.
--- NOTE | 2023-04-18 18:37 | PTCARENOTE ---
Report given to Jhonny RN for transfer to [address] [place] [address]. Hakeem notified of plan of care and transfer. Information in report included Morphine drips and pain/ respiratory scale. Also husbands phone number provided to call with updates as per his
request.
[2023-04-18] MEDS: XALATAN OPHTHALMIC SOLUTION 1 DROP BOTH EYES (22:30)
[2023-04-18] MEDS: TIMOPTIC 0.5% OPHTHALMIC SOLUTION 1 DROP LEFT EYE (22:30)
--- NOTE | 2023-04-19 07:54 | PN.CDI ---
CDI
- -
CDI:
Physician Documentation Request
Admit Date: 04/14/23 17:10
Dear Doctor Cheryl,
Please review the following and provide your response in the progress notes.
Clinical Indicators:
- Patient admit for sepsis
- 04/18 PN 'initiate actual comfort measures...stop all meds'
- Calcium levels as follows:
Laboratory Tests
04/15/23 04/15/23 04/15/23
15:08 17:54 21:14
Calcium 7.6 L 3.5 L* D 7.4 L D
04/16/23 04/17/23 04/18/23
14:04 04:07 03:41
Calcium 7.3 L 7.2 L 6.7 L*
Please provide a diagnosis for the above lab values that were monitored and treatment rendered:
Hypocalcemia
Clinically insignificant abnormal lab value
Other
Use of terms such as suspected, likely, concern for, or probable (associated with a specific diagnosis that is being evaluated, monitored, or treated as if it exists) are acceptable and can be coded in the inpatient setting, when documented at the
time of discharge.
Thank you,
Maria Guadalupe Harman RN
CDI Specialist
Please use your independent medical judgment in providing your response.
[2023-04-19 07:55] VITALS: BP 113/66
[2023-04-19] MEDS: NSS (PRESERVATIVE FREE) IV (08:15)
--- NOTE | 2023-04-19 08:16 | PN.CDI ---
CDI
- -
CDI:
Physician Documentation Request
Admit Date: 04/14/23 17:10
Dear Doctor Cheryl,
Please review the following and provide your response in the progress notes.
Clinical Indicators:
- 04/15 Wound note indicates POA:
- Stage 3 right ankle pressure injury, POA
- Unstageable right medial foot pressure injury, POA
- Stage 1 bilateral heels pressure injury, POA
Physician documentation of the type and location of wounds is required for compliant documentation. Based on the above clinical findings and your assessment, please provide the following in your progress note:
1. Location of the ulcer/wound, including laterality.
2. Type (etiology) of ulcer/wound:
- Diabetic ulcer
- Arterial (ischemic) ulcer
- Traumatic wound
- Venous stasis ulcer
- Pressure (decubitus) ulcer
- Non-healing surgical wound
- Other
- Unable to determine
Use of terms such as suspected, likely, concern for, or probable (associated with a specific diagnosis that is being evaluated, monitored, or treated as if it exists) are acceptable and can be coded in the inpatient setting, when documented at the
time of discharge.
Thank you,
Maria Guadalupe Harman RN
CDI Specialist
Please use your independent medical judgment in providing your response.
*Source: National Pressure Ulcer Advisory Panel (NPUAP)
--- NOTE | 2023-04-19 08:23 | PN.CDI ---
CDI
- -
CDI:
Physician Documentation Request
Admit Date: 04/14/23 17:10
Dear Doctor Cheryl,
Please review the following and provide your response in the progress notes.
Clinical Indicators:
- 04/18 PN 'Small acute left frontal subdural hematoma. No associated mass effect'
- 'Acute thrombocytopenia from sepsis vs HIT vs DIC'
- Received 2 units PRBC, 1 unit Platelets
- per H&P history of intracranial hygroma
Please clarify the likely/suspected etiology of the acute subdural hematoma
Non traumatic subdural hematoma
Traumatic subdural hematoma
Other
Use of terms such as suspected, likely, concern for, or probable (associated with a specific diagnosis that is being evaluated, monitored, or treated as if it exists) are acceptable and can be coded in the inpatient setting, when documented at the
time of discharge.
Thank you,
Maria Guadalupe Harman RN
CDI Specialist
Please use your independent medical judgment in providing your response.
[2023-04-19] MEDS: ROBINUL 0.200000000000000011 MG IV (08:36)
[2023-04-19] MEDS: MORPHINE SULFATE 2 MG IV ×3 (09:27→14:37)
--- NOTE | 2023-04-19 10:33 | W.PN.HOSP.TC ---
Today's Communication/Plan
-
continue comfort measures
Assessment / Plan
Assessment / Plan
Assessment:
Severe Sepsis (fever, tachycardia, lactic acidosis, leukocytosis,),
septic shock secondary to Pseudomonas UTI/metabolic encephalopathy
History of Proteus mirabilis UTI, History of recurrent hospitalization with poor functional status
- no improvement despite empiric Abx and Harding placement
TME in setting of above
- no improvement despite empiric Abx and Harding placement
- continued somnolence, lethargy
Small acute left frontal subdural hematoma. No associated mass effect.
- Non traumatic subdural hematoma
Acute thrombocytopenia from sepsis vs HIT vs DIC
Mild Nosebleed with bleeding from mouth mucous membrane noted today
Permanent atrial fibrillation status post Watchman
Acute kidney injury
Metabolic acidosis secondary to sepsis/lactic acidosis
Hypoglycemia
Hypernatremia
Acute on anemia of chronic disease
Hx of recent admission to [facility] for colitis.
valvular heart disease
Mild to moderate mitral regurgitation.
Mild aortic regurgitation.
Moderate to severe tricuspid regurgitation.
Intracranial hygroma
Multiple chronic multilevel vertebral body endplate fractures
Chronic back pain status post spinal stimulator which is detached
Mild to moderate elevation of right hemidiaphragm
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
Pulmonary hypertension
Essential hypertension/ Chronic thrombocytopenia
Hyperlipidemia
History of MRSA infection. MRSA positive in the nose but not in blood
Depression
Glaucoma
Stage 3 right ankle pressure injury, POA
Unstageable right medial foot pressure injury, POA
Stage 1 bilateral heels pressure injury, POA
Hypocalcemia
Dispo: Comfort measures, continue Morphine infusion
Anticipated Discharge: 24 - 48 hours
Subjective/Interval History
-
Date of Service: April 19, 2023
Objective Data
-
Vital Signs:
Vital Signs
Temp Pulse Resp BP Pulse Ox
98.9 F 116 12 113/66 98
04/19/23 07:55 04/19/23 07:55 04/19/23 07:55 04/19/23 07:55 04/19/23 07:55
I&O
04/18/23 04/19/23 04/20/23
06:59 06:59 06:59
Intake Total 1761 / 1761 480 / 480
Output Total 150 / 150 100 / 100
Balance 1611 / 1611 380 / 380
Data Reviewed
-
Total Time Spent with Patient (in minutes): 45
Labs: Labs Reviewed by me
--- NOTE | 2023-04-19 14:08 | PTCARENOTE ---
this nurse manually charted the beginning administration of the morphine gtt due to not being scanned into may. pt received 2 breakthrough doses this afternoon and per MD was increased to a step 2 gtt. pt casarez catheter care completed and whole
bedbath by this nurse and student nurse manjit. pt casarez has dark sancho colored urine with minimal output. pt has labored respirations and is on 2L of O2
[2023-04-19] MEDS: REFRESH CELLUVISC GEL 1 DROPS BOTH EYES (14:35)
[2023-04-19] MEDS: NSS (PRESERVATIVE FREE) 1 ML IV (14:35)
[2023-04-19] MEDS: ATIVAN 2 MG IV (14:36)
--- NOTE | 2023-04-19 14:48 | CM ---
Reviewed the chart notes. Patient is now on inpatient comfort care. CM continues to be available to patient/family and is monitoring medical plan for needs at discharge.
Plan: Comfort Care.
--- NOTE | 2023-04-19 16:18 | W.PN.DEATH ---
Pronouncement of
-
Called to see patient to pronounce.
No spontaneous heart tones or respirations noted.
Patient not responsive to verbal stimuli.
Patient is pronounced .
Time of : 15:45
Date of : 04/19/23
Cause of : septic shock, pseudomonas UTI
Family Notified: Yes
== END 2023-04-19 18:20 | disposition expired | DRG 871 ==
LOC: 2 NORTH 17:10
PROVIDERS: Emergency Medicine; Internal Medicine; Nurse Practitioner Family; Nurse Practitioner Gerontology; ADMITTING PHYSICIAN Hospitalist; ATTENDING PHYSICIAN Internal Medicine; CONSULT PHYSICIAN Internal Medicine Critical Care Medicine; EMERGENCY PHYSICIAN Emergency Medicine; FAMILY PHYSICIAN Family Medicine; OTHER PHYSICIAN Internal Medicine; OTHER PHYSICIAN Internal Medicine Hematology & Oncology
PROC: 30233N1 Transfusion of Nonautologous Red Blood Cells into Peripheral Vein, Percutaneous Approach (ICD-10-PCS; 2023-04-15)
PROC: 30233R1 Transfusion of Nonautologous Platelets into Peripheral Vein, Percutaneous Approach (ICD-10-PCS; 2023-04-17)
DX: A41.52 Sepsis due to Pseudomonas (principal); G92.8 Other toxic encephalopathy; R65.21 Severe sepsis with septic shock; I62.01 Nontraumatic acute subdural hemorrhage; I48.21 Permanent atrial fibrillation; E87.0 Hyperosmolality and hypernatremia; N17.9 Acute kidney failure, unspecified; F03.93 Unspecified dementia, unspecified severity, with mood disturbance; E87.1 Hypo-osmolality and hyponatremia; E87.20 Acidosis, unspecified; E46 Unspecified protein-calorie malnutrition; N39.0 Urinary tract infection, site not specified; D68.9 Coagulation defect, unspecified; D63.1 Anemia in chronic kidney disease; I12.9 Hypertensive chronic kidney disease with stage 1 through stage 4 chronic kidney disease, or unspecified chronic kidney disease; N18.9 Chronic kidney disease, unspecified; I27.20 Pulmonary hypertension, unspecified; E78.00 Pure hypercholesterolemia, unspecified; K21.9 Gastro-esophageal reflux disease without esophagitis; E16.2 Hypoglycemia, unspecified; Z86.14 Personal history of Methicillin resistant Staphylococcus aureus infection; F32.A Depression, unspecified; Z66 Do not resuscitate; R06.03 Acute respiratory distress; D69.6 Thrombocytopenia, unspecified; Z11.52 Encounter for screening for COVID-19; Z51.5 Encounter for palliative care; E83.51 Hypocalcemia
CPT/HCPCS: 70450; 71045; 76775; 80048; 80053; 80202; 81003; 81015; 82140; 82570; 82962; 83605; 83735; 84100; 84300; 85014; 85018; 85025; 85027; 86022; 86850; 86900; 86901; 86920; 87040; 87070; 87077; 87086; 87147; 87186; 87502; 87811; 92526; 92610; 93005; 99285; P9016; P9047; P9073